=== PATIENT | male | born 1965 | race Caucasian/White ===

== ENCOUNTER 2017-01-11 11:09 | Inpatient (IN) | payer OTHER ==
[2017-01-11 11:39] VITALS: BMI 24.7
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
[2017-01-11] MEDS ORDERED: ACETAMINOPHEN 325 MG TABLET (FP) PO PRN (12:30)
[2017-01-11] MEDS ORDERED: MENTHOL/PHENOL 1 EACH UD MM PRN (12:30)
[2017-01-11] MEDS ORDERED: MAGNESIUM HYDROX 2400MG/30ML ORAL SUSPENSION 30 ML CUP PO PRN (12:30)
[2017-01-11] MEDS ORDERED: guaiFENesin/D-METHORPHAN HB 10 ML UNIT-DOSE CUPS PO PRN (12:30)
[2017-01-11] MEDS ORDERED: P-EPHED 60MG/TRIPROLIDI 2.5MG TABLET PO PRN (12:30)
[2017-01-11] MEDS ORDERED: MAGNESIUM CITRATE 300 ML BOTTLE PO PRN (12:30)
[2017-01-11] MEDS ORDERED: MAG HYDROX/AL HYDROX/SIMETH 30 ML UNIT-DOSE CUP PO PRN (12:30)
[2017-01-11] MEDS ORDERED: chlordiazePOXIDE HCL 25 MG CAPSULE PO ONE (13:45)
--- NOTE | 2017-01-11 13:59 | CONSULT ---
[facility] Psychiatric Consult - Data Date of interview: 01/11/17 Admission source: [facility] Identifying data: This is 51 years old iraqi speaking male with no psychiatric hospitalization history, intoxicated with: Alcohol, Cannabis Substance Abuse History: Drug Screen Negative: No. Urine Drug Screen Results: THC-Marijuana. - Smoking Cessation. Smoking history: Former smoker. Have you smoked in the past 12 months: No. Aproximately how many cigarettes per day: 1. Hx Chewing Tobacco Use: No. Initiated information on smoking cessation: No. - Substance & Tx. History. Hx Alcohol Use: Yes. Hx Substance Use: No. Substance Use Type: Alcohol. Hx Substance Use Treatment: Yes ([facility] detox ) Medical History: GERD Psychiatric History: Patient reports no past psychiatric history Physical/Sexual Abuse/Trauma History: Denies Additional Comment: Drug Screen Negative: No. Urine Drug Screen Results: THC- Marijuana. Observation. Detox Unit Care Protocol Mental Status Exam - Mental Status Exam Alert and Oriented to: Person Cognitive Function: Fair Patient Appearance: Unkempt Mood: Apprehensive Affect: Mood Congruent Patient Behavior: Cooperative Speech Pattern: Appropriate Voice Loudness: Normal Thought Process: Goal Oriented Thought Disorder: Being Controlled Hallucinations: Denies Suicidal Ideation: Denies Homicidal Ideation: Denies Insight/Judgement: Fair Sleep: Difficulty falling asleep Appetite: Fair Muscle strength/Tone: Normal Gait/Station: Normal Additional Comments: Observation. Detox Unit Care Protocol Psychiatric Findings - Problem List ([place] 1, 2,3) (1) Alcohol dependence with uncomplicated withdrawal Current Visit: No Status: Chronic (2) GERD (gastroesophageal reflux disease) Current Visit: No Status: Chronic Qualifiers: Esophagitis presence: without esophagitis Qualified Code(s): K21.9 - Gastro-esophageal reflux disease without esophagitis (3) Alcohol-induced sleep disorder Current Visit: Yes Status: Acute - Initial Treatment Plan Initial Treatment Plan: Observation. Detox Unit Care Protocol
[2017-01-11 17:02] LABS: URINE APPEARANCE CLEAR; URINE BILIRUBIN NEGATIVE (NEGATIVE); URINE BLOOD 1+ (NEGATIVE); URINE COLOR STRAW; URINE GLUCOSE (UA) NEGATIVE (NEGATIVE); URINE KETONE NEGATIVE (NEGATIVE); URINE LEUK ESTERASE NEGATIVE (NEGATIVE); URINE NITRITE NEGATIVE (NEGATIVE); URINE PROTEIN NEGATIVE (NEGATIVE); URINE UROBILINOGEN NEGATIVE mg/dL (0.2-1.0)
[2017-01-11 17:04] LABS: URINE RBC <1 /hpf (0-3)
[2017-01-11] MEDS: chlordiazePOXIDE HCL 25 MG CAPSULE PO SCH ×2 (17:33→22:19)
[2017-01-11] MEDS: hydrOXYzine PAMOATE 50 MG CAPSULE (FP) PO PRN (18:28)
[2017-01-11] MEDS: THIAMINE HCL 100 MG TABLET (FP) PO SCH (22:19)
[2017-01-11] MEDS: RANITIDINE HCL 150 MG TABLET (FP) PO SCH (22:19)
[2017-01-11] MEDS: diphenhydrAMINE HCL 50 MG CAPSULE PO PRN (22:19)
[2017-01-12] MEDS: chlordiazePOXIDE HCL 25 MG CAPSULE PO PRN ×3 (00:50→13:02)
[2017-01-12] MEDS: diphenhydrAMINE HCL 50 MG CAPSULE PO PRN ×2 (00:50→22:17)
[2017-01-12] MEDS: hydrOXYzine PAMOATE 50 MG CAPSULE (FP) PO PRN ×2 (02:30→15:06)
[2017-01-12] MEDS: chlordiazePOXIDE HCL 25 MG CAPSULE PO SCH ×4 (05:25→22:17)
--- NOTE | 2017-01-12 09:00 | PN ---
S CIWA - CIWA Score Nausea/Vomitin-No Nausea/No Vomiting Muscle Tremors: 4-Moderate,w/Arms Extend Anxiety: 3 Agitation: 4-Moderately Restless Paroxysmal Sweats: 3 Orientation: 0-Oriented Tacttile Disturbances: 0-None Auditory Disturbances: 0-None Visual Disturbances: 0-None Headache: 2-Mild CIWA-Ar Total Score: 16 BHS Progress Note (SOAP) Subjective: sweats shakes nausea chills headache interrupted sleep Objective: 01/12/17 08:59 Vital Signs Temperature 97.7 F 01/12/17 06:00 Pulse Rate 93 H 01/12/17 06:30 Respiratory Rate 20 01/12/17 06:00 Blood Pressure 121/87 01/12/17 06:00 O2 Sat by Pulse Oximetry (%) Laboratory Tests 01/11/17 14:00 Urine Color Straw Urine Appearance Clear Urine pH 7.0 Ur Specific [place] <= 1.005 Urine Protein Negative Urine Glucose (UA) Negative Urine Ketones Negative Urine Blood 1+ H Urine Nitrite Negative Urine Bilirubin Negative Urine Urobilinogen Negative Ur Leukocyte Esterase Negative Urine RBC <1 Urine WBC None labs pending awake/alert ambulating no acute distress Assessment: 01/12/17 08:59 withdrawal sx Plan: continue detox increase fluids labs pending encouraged librium prn when necessary
[2017-01-12] MEDS: RANITIDINE HCL 150 MG TABLET (FP) PO SCH ×2 (10:07→22:17)
[2017-01-12] MEDS: PRENATAL VITAMINS W/ FOLIC ACID TABLET (FP) PO SCH (10:08)
[2017-01-12 10:28] LABS: MCH 30.1 pg (25.7-33.7); MCHC 32.6 g/dl (32.0-35.9); MEAN CELL VOLUME 92.1 fl (80-96); MEAN PLT VOLUME 9.4 fl (7.5-11.1); PLATELET COUNT 62 K/MM3 (134-434); RDW 16.2 % (11.9-15.9); WHITE BLOOD COUNT 4.6 K/mm3 (4.0-10.0)
[2017-01-12] MEDS ORDERED: cloNIDine HCL 0.1 MG TABLET PO ONE (11:47)
[2017-01-12 12:25] LABS: ALBUMIN 3.9 g/dl (3.4-5.0); ALK PHOS 162 U/L (45-117); ANION GAP 13 (8-16); CALCIUM 8.5 mg/dL (8.5-10.1); CO2 29 mmol/L (21-32); CREATININE 0.7 mg/dL (0.7-1.3); GLUCOSE,RANDOM 123 mg/dL (74-106); SGOT/AST 287 U/L (15-37); SGPT/ALT 105 U/L (12-78); TOT PROT 7.8 g/dl (6.4-8.2)
[2017-01-12] MEDS ORDERED: TRYPAN BLUE 0.5 ML DISP.SYRIN IO SCH (13:30)
[2017-01-12] MEDS: POTASSIUM CHLORIDE TABS 20 MEQ TABLET.ER (FP) PO SCH (14:10)
--- NOTE | 2017-01-12 14:24 | EKG ---
Test Reason : Blood Pressure : / mmHG Vent. Rate : 095 BPM Atrial Rate : 095 BPM P-R Int : 154 ms QRS Dur : 106 ms QT Int : 346 ms P-R-T Axes : 032 024 059 degrees QTc Int : 434 ms NORMAL SINUS RHYTHM NORMAL ECG WHEN COMPARED WITH ECG OF 29-JUN-2016 14:17, NO SIGNIFICANT CHANGE WAS FOUND Confirmed by RAKAN CARLSON MD ([id number]) on 01/12/2017 2:24:18 PM Referred By: Confirmed By:RAKAN CARLSON MD
[2017-01-12] MEDS: LOPERAMIDE HCL 2 MG CAPSULE PO PRN (22:17)
[2017-01-12] MEDS: THIAMINE HCL 100 MG TABLET (FP) PO SCH (22:17)
[2017-01-13] MEDS: diphenhydrAMINE HCL 50 MG CAPSULE PO PRN ×2 (00:31→22:42)
[2017-01-13] MEDS: chlordiazePOXIDE HCL 25 MG CAPSULE PO PRN ×3 (01:09→19:36)
[2017-01-13] MEDS: chlordiazePOXIDE HCL 25 MG CAPSULE PO SCH ×2 (05:08→10:17)
[2017-01-13] MEDS: LOPERAMIDE HCL 2 MG CAPSULE PO PRN (06:12)
--- NOTE | 2017-01-13 08:39 | PN ---
BHS Progress Note Note: pt was advised not to leave AMA. Pt states I need to get home. Pt was
[2017-01-13] MEDS: hydrOXYzine PAMOATE 50 MG CAPSULE (FP) PO PRN ×3 (08:53→18:22)
--- NOTE | 2017-01-13 09:06 | PN ---
[facility] CIWA - CIWA Score Nausea/Vomitin-No Nausea/No Vomiting Muscle Tremors: 4-Moderate,w/Arms Extend Anxiety: 3 Agitation: 4-Moderately Restless Paroxysmal Sweats: 3 Orientation: 0-Oriented Tacttile Disturbances: 0-None Auditory Disturbances: 0-None Visual Disturbances: 0-None Headache: 0-None Present CIWA-Ar Total Score: 14 BHS Progress Note (SOAP) Subjective: anxious agitation interrupted sleep irritable i would like my sutures removed Objective: 01/13/17 09:06 Vital Signs Temperature 97.7 F 01/13/17 06:28 Pulse Rate 109 H 01/13/17 06:28 Respiratory Rate 18 01/13/17 06:28 Blood Pressure 130/94 01/13/17 06:28 O2 Sat by Pulse Oximetry (%) Laboratory Tests 01/11/17 01/12/17 01/12/17 14:00 06:00 06:00 WBC 4.6 RBC 4.45 Hgb 13.4 Hct 40.9 MCV 92.1 MCH 30.1 MCHC 32.6 RDW 16.2 H Plt Count 62 L D MPV 9.4 Sodium 138 Potassium 3.4 L Chloride 96 L Carbon Dioxide 29 Anion Gap 13 BUN 4 L D Creatinine 0.7 Creat Clearance w eGFR > 60 Random Glucose 123 H D Calcium 8.5 Total Bilirubin 1.0 AST 287 H D ALT 105 H Alkaline Phosphatase 162 H D Total Protein 7.8 Albumin 3.9 Urine Color Straw Urine Appearance Clear Urine pH 7.0 Ur Specific [place] <= 1.005 Urine Protein Negative Urine Glucose (UA) Negative Urine Ketones Negative Urine Blood 1+ H Urine Nitrite Negative Urine Bilirubin Negative Urine Urobilinogen Negative Ur Leukocyte Esterase Negative Urine RBC <1 Urine WBC None RPR Titer 01/12/17 06:00 WBC RBC Hgb Hct MCV MCH MCHC RDW Plt Count MPV Sodium Potassium Chloride Carbon Dioxide Anion Gap BUN Creatinine Creat Clearance w eGFR Random Glucose Calcium Total Bilirubin AST ALT Alkaline Phosphatase Total Protein Albumin Urine Color Urine Appearance Urine pH Ur Specific [place] Urine Protein Urine Glucose (UA) Urine Ketones Urine Blood Urine Nitrite Urine Bilirubin Urine Urobilinogen Ur Leukocyte Esterase Urine RBC Urine WBC RPR Titer Nonreactive awake/alert ambulating no acute distress Assessment: 01/13/17 10:03 withdrawal sx suture site; clean, dry and healed. no s/s of infection Plan: continue detox increase fluids vistirl prn sutures removed; bacitracin ordered.
[2017-01-13 10:14] LABS: ALBUMIN 3.6 g/dl (3.4-5.0); ALK PHOS 207 U/L (45-117); ANION GAP 8 (8-16); BILIRUBIN,TOTAL 1.4 mg/dL (0.2-1.0); CO2 33 mmol/L (21-32); CREATININE 0.7 mg/dL (0.7-1.3); GLUCOSE,RANDOM 97 mg/dL (74-106); SGPT/ALT 225 U/L (12-78); TOT PROT 7.6 g/dl (6.4-8.2)
[2017-01-13] MEDS: POTASSIUM CHLORIDE TABS 20 MEQ TABLET.ER (FP) PO SCH (10:17)
[2017-01-13] MEDS: RANITIDINE HCL 150 MG TABLET (FP) PO SCH ×2 (10:17→22:42)
[2017-01-13] MEDS: BACITRACIN 0.9 GM PACKET TP SCH (10:17)
[2017-01-13] MEDS: PRENATAL VITAMINS W/ FOLIC ACID TABLET (FP) PO SCH (10:17)
[2017-01-13 10:47] LABS: SGOT/AST 676 U/L (15-37)
[2017-01-13] MEDS ORDERED: hydrOXYzine PAMOATE 50 MG CAPSULE (FP) PO ONE (11:26)
--- NOTE | 2017-01-13 11:39 | PN ---
Psychiatric Progress Note Vital Signs: Vital Signs Period Temp Pulse Resp BP Sys/Cosby Pulse Ox Last 24 Hr 97.7 F-98.2 F 97-110 18-20 110-139/80-96 Date of Session: 01/13/17 Chief Complaint:: Insomnia HPI: Patient reports insomnia, reports good response on Seroquel 100mg po qhs Current Medications: Active Medications Generic Name Dose Route Start Last Admin Trade Name Freq PRN Reason Stop Dose Admin Al Hydroxide/Mg Hydroxide 30 ml 01/11/17 12:30 Mylanta Oral Suspension - PO Q6H PRN DYSPEPSIA Artificial Tears 1 drop 01/12/17 13:30 Artificial Tears OU Q6H PRN DRY EYES Bacitracin 0.9 gm 01/13/17 10:00 01/13/17 10:17 Bacitracin - TP 0.9 gm DAILY NILS Administration Chlordiazepoxide HCl 10 mg 01/14/17 17:00 Librium - PO 01/15/17 11:01 [id number]-KRN NILS Chlordiazepoxide HCl 25 mg 01/11/17 12:30 01/13/17 01:09 Librium - PO 01/14/17 12:29 25 mg Q4H PRN Administration WITHDRAWAL(CONT SUBST) Chlordiazepoxide HCl 15 mg 01/13/17 17:00 Librium - PO 01/14/17 11:01 [id number] NILS Diphenhydramine HCl 50 mg 01/11/17 12:30 01/13/17 00:31 Benadryl - PO 50 mg HSMR1 PRN Administration INSOMNIA Eucalyptus/Menthol/Phenol/Sorbitol 1 each 01/11/17 12:30 Cepastat Lozenge - MM Q4H PRN SORE THROAT Guaifenesin 10 ml 01/11/17 12:30 Robitussin Dm - PO Q6H PRN COUGH Hydroxyzine Pamoate 50 mg 01/11/17 12:30 01/13/17 08:53 Vistaril - PO 50 mg Q4H PRN Administration AGITATION Ibuprofen 400 mg 01/11/17 12:30 Motrin - PO Q6H PRN SEVERE PAIN Loperamide HCl 4 mg 01/11/17 12:30 01/13/17 06:12 Imodium - PO 4 mg Q6H PRN Administration DIARRHEA Magnesium Citrate 300 ml 01/11/17 12:30 Citroma - PO Q48H PRN CONSTIPATION Magnesium Hydroxide 30 ml 01/11/17 12:30 Milk Of Magnesia - PO DAILY PRN CONSTIPATION Potassium Chloride 40 meq 01/12/17 13:45 01/13/17 10:17 K-Dur - PO 40 meq DAILY NILS Administration Multivit/Folic Acid/Iron 1 tab 01/12/17 10:00 01/13/17 10:17 Vitamins (Sjr) - PO 1 tab DAILY NILS Administration Pseudoephedrine/Triprolidine 1 combo 01/11/17 12:30 Actifed - PO TID PRN NASAL CONGESTION Quetiapine Fumarate 100 mg 01/13/17 22:00 Seroquel - PO HS NILS Ranitidine HCl 150 mg 01/11/17 22:00 01/13/17 10:17 Zantac - PO 150 mg BID NILS Administration Thiamine HCl 100 mg 01/11/17 22:00 01/12/17 22:17 Vitamin B1 - PO 100 mg HS NILS Administration Mental Status Exam - Mental Status Exam Alert and Oriented to: Person Cognitive Function: Fair Patient Appearance: Well Groomed Mood: Anxious Affect: Mood Congruent Patient Behavior: Talkative, Agitated Speech Pattern: Excessive Voice Loudness: Mildly Loud Thought Process: Goal Oriented Thought Disorder: Being Controlled Hallucinations: Denies Suicidal Ideation: Denies Homicidal Ideation: Denies Insight/Judgement: Fair Sleep: Difficulty falling asleep Appetite: Fair Muscle strength/Tone: Normal Gait/Station: Normal Additional Comments: Seroquel 100mg po qhs Psychiatric Treatment Plan - Problem List (1) Alcohol dependence with uncomplicated withdrawal Current Visit: Yes (2) GERD (gastroesophageal reflux disease) Current Visit: Yes Qualifiers: Esophagitis presence: without esophagitis Qualified Code(s): K21.9 - Gastro-esophageal reflux disease without esophagitis (3) Alcohol-induced sleep disorder Current Visit: Yes Initial treatment plan: Seroquel 100mg po qhs
[2017-01-13] MEDS: chlordiazePOXIDE 5 MG CAPSULE PO SCH ×2 (16:21→22:42)
[2017-01-13] MEDS: IBUPROFEN 400 MG TABLET (FP) PO PRN (16:21)
[2017-01-13] MEDS: QUEtiapine FUMARATE 100 MG TABLET (FP) PO SCH (22:42)
[2017-01-13] MEDS: THIAMINE HCL 100 MG TABLET (FP) PO SCH (22:42)
[2017-01-14] MEDS: chlordiazePOXIDE 5 MG CAPSULE PO SCH ×2 (05:05→11:04)
[2017-01-14] MEDS: chlordiazePOXIDE HCL 25 MG CAPSULE PO PRN (08:39)
--- NOTE | 2017-01-14 08:41 | PN ---
BHS Progress Note (SOAP) Subjective: anxiety sweats irritable interrupted sleep Objective: 01/14/17 08:36 Vital Signs Temperature 98.1 F 01/14/17 06:14 Pulse Rate 89 01/14/17 06:14 Respiratory Rate 18 01/14/17 06:14 Blood Pressure 127/82 01/14/17 06:14 O2 Sat by Pulse Oximetry (%) Laboratory Tests 01/11/17 01/12/17 01/12/17 14:00 06:00 06:00 WBC 4.6 RBC 4.45 Hgb 13.4 Hct 40.9 MCV 92.1 MCH 30.1 MCHC 32.6 RDW 16.2 H Plt Count 62 L D MPV 9.4 Sodium 138 Potassium 3.4 L Chloride 96 L Carbon Dioxide 29 Anion Gap 13 BUN 4 L D Creatinine 0.7 Creat Clearance w eGFR > 60 Random Glucose 123 H D Calcium 8.5 Total Bilirubin 1.0 AST 287 H D ALT 105 H Alkaline Phosphatase 162 H D Total Protein 7.8 Albumin 3.9 Urine Color Straw Urine Appearance Clear Urine pH 7.0 Ur Specific [place] <= 1.005 Urine Protein Negative Urine Glucose (UA) Negative Urine Ketones Negative Urine Blood 1+ H Urine Nitrite Negative Urine Bilirubin Negative Urine Urobilinogen Negative Ur Leukocyte Esterase Negative Urine RBC <1 Urine WBC None RPR Titer 01/12/17 01/13/17 06:00 06:30 WBC RBC Hgb Hct MCV MCH MCHC RDW Plt Count MPV Sodium 138 Potassium 3.7 Chloride 97 L Carbon Dioxide 33 H Anion Gap 8 BUN 6 L D Creatinine 0.7 Creat Clearance w eGFR > 60 Random Glucose 97 D Calcium 9.0 Total Bilirubin 1.4 H D AST 676 H D ALT 225 H D Alkaline Phosphatase 207 H D Total Protein 7.6 Albumin 3.6 Urine Color Urine Appearance Urine pH Ur Specific [place] Urine Protein Urine Glucose (UA) Urine Ketones Urine Blood Urine Nitrite Urine Bilirubin Urine Urobilinogen Ur Leukocyte Esterase Urine RBC Urine WBC RPR Titer Nonreactive elevated ast/alt pt appears with little confusion as to how he arrived to the unit. however, pt is aware of time, person. ammonia level ordered repeated ast/alt/inr labs Assessment: 01/14/17 10:36 withdrawal sx Plan: continue detox increase fluids f/u pending labs d/c for tomorrow is pending on labs and mental orientation
[2017-01-14] MEDS: POTASSIUM CHLORIDE TABS 20 MEQ TABLET.ER (FP) PO SCH (11:04)
[2017-01-14] MEDS: BACITRACIN 0.9 GM PACKET TP SCH (11:04)
[2017-01-14] MEDS: PRENATAL VITAMINS W/ FOLIC ACID TABLET (FP) PO SCH (11:04)
[2017-01-14] MEDS: RANITIDINE HCL 150 MG TABLET (FP) PO SCH ×2 (11:04→22:31)
[2017-01-14] MEDS: hydrOXYzine PAMOATE 50 MG CAPSULE (FP) PO PRN ×2 (11:05→17:22)
[2017-01-14] MEDS ORDERED: LACTULOSE 20 GM/30 ML UDC (FOR ORAL USE ONLY) PO ONE (12:01)
[2017-01-14] MEDS ORDERED: hydrOXYzine PAMOATE 50 MG CAPSULE (FP) PO ONE (13:47)
[2017-01-14] MEDS: IBUPROFEN 400 MG TABLET (FP) PO PRN (13:54)
[2017-01-14] MEDS: LACTULOSE 20 GM/30 ML UDC (FOR ORAL USE ONLY) PO SCH ×3 (14:05→22:32)
[2017-01-14 15:48] LABS: SGOT/AST 364 U/L (15-37); SGPT/ALT 215 U/L (12-78)
[2017-01-14 16:12] LABS: INR 0.98 (0.82-1.09); PROTHROMBIN TIME (PATIENT) 10.8 SEC (9.98-11.88)
[2017-01-14] MEDS: chlordiazePOXIDE HCL 10 MG CAPSULE PO SCH ×2 (17:19→22:31)
[2017-01-14] MEDS: diphenhydrAMINE HCL 50 MG CAPSULE PO PRN (22:31)
[2017-01-14] MEDS: THIAMINE HCL 100 MG TABLET (FP) PO SCH (22:31)
[2017-01-14] MEDS: QUEtiapine FUMARATE 100 MG TABLET (FP) PO SCH (22:31)
[2017-01-14] MEDS: ARTIFICIAL TEARS (POLYVINYL ALCOHOL 1.4%) OPTH DROPS OU PRN (22:32)
[2017-01-15] MEDS: chlordiazePOXIDE HCL 10 MG CAPSULE PO SCH ×2 (05:39→10:18)
[2017-01-15] MEDS: ARTIFICIAL TEARS (POLYVINYL ALCOHOL 1.4%) OPTH DROPS OU PRN (09:14)
[2017-01-15] MEDS: hydrOXYzine PAMOATE 50 MG CAPSULE (FP) PO PRN (09:18)
[2017-01-15] MEDS: RANITIDINE HCL 150 MG TABLET (FP) PO SCH (10:18)
[2017-01-15] MEDS: BACITRACIN 0.9 GM PACKET TP SCH (10:18)
[2017-01-15] MEDS: PRENATAL VITAMINS W/ FOLIC ACID TABLET (FP) PO SCH (10:18)
[2017-01-15] MEDS: POTASSIUM CHLORIDE TABS 20 MEQ TABLET.ER (FP) PO SCH (10:18)
[2017-01-15] MEDS: LACTULOSE 20 GM/30 ML UDC (FOR ORAL USE ONLY) PO SCH (10:19)
--- NOTE | 2017-01-15 10:54 | DS ---
[facility] Detox Discharge Summary Admission Date: 01/11/17 Discharge Date: 01/15/17 - History Present History: Alcohol Dependence - Physical Exam Results Vital Signs: Vital Signs Temperature 97.7 F 01/15/17 06:31 Pulse Rate 83 01/15/17 06:31 Respiratory Rate 16 01/15/17 06:31 Blood Pressure 108/75 01/15/17 06:31 O2 Sat by Pulse Oximetry (%) - Treatment Hospital Course: Detox Protocol Followed, Detoxed Safely, Responded well, Discharged Condition Good, Rehab Referral Accepted - Medication Discharge Medications: Ambulatory Orders Potassium Chloride [K-Dur -] 40 meq PO DAILY #3 tab 01/13/17 Quetiapine Fumarate [Seroquel] 100 mg PO HS #30 tablet 01/13/17 Quetiapine Fumarate [Seroquel] 100 mg PO HS #30 tablet 01/13/17 - Diagnosis (1) Alcohol dependence with uncomplicated withdrawal Current Visit: Yes Status: Chronic (2) GERD (gastroesophageal reflux disease) Current Visit: Yes Status: Chronic Qualifiers: Esophagitis presence: without esophagitis Qualified Code(s): K21.9 - Gastro-esophageal reflux disease without esophagitis - AMA Did Patient Leave Against Medical Advice: No (d/c to home)
[2017-01-15 11:07] VITALS: BP 129/94; PULSE 102; TEMP 97.9
--- NOTE | 2017-01-15 11:56 | PN ---
[facility] Progress Note Note: pt appears much more lucid and states he feels so much better. Pt was advised that his liver enzymes are improving slowly and ammonia level will improve with continued lactulose. Pt in agreement.
== END 2017-01-15 11:40 | disposition home or self-care (01) | DRG 897 ==
LOC: YASAS 11:09 → Y6N 13:40
PROVIDERS: ADMIT Internal Medicine; ATTEND Internal Medicine
PROC: HZ2ZZZZ Detoxification Services for Substance Abuse Treatment (ICD-10-PCS; principal; 2017-01-11)
DX: F19.230 Other psychoactive substance dependence with withdrawal, uncomplicated (principal); F10.230 Alcohol dependence with withdrawal, uncomplicated; F10.282 Alcohol dependence with alcohol-induced sleep disorder; R00.0 Tachycardia, unspecified; R74.0 Nonspecific elevation of levels of transaminase and lactic acid dehydrogenase [LDH]; K21.9 Gastro-esophageal reflux disease without esophagitis; Z87.891 Personal history of nicotine dependence
CPT/HCPCS: 36415; 80053; 81003; 81015; 82140; 84450; 84460; 85027; 85610; 86593; 93005; 93010

== ENCOUNTER 2018-03-03 14:44 | Inpatient (IN) | payer OTHER ==
[2018-03-03 15:33] VITALS: BMI 26.6
--- NOTE | 2018-03-03 18:41 | HP ---
CIWA Score - CIWA Score Nausea/Vomitin-No Nausea/No Vomiting Muscle Tremors: 2 Anxiety: 3 Agitation: 5 Paroxysmal Sweats: 3 Orientation: 1-Uncertain about Date (no distress) Tacttile Disturbances: 0-None Auditory Disturbances: 0-None Visual Disturbances: 1-Very Mild Sensitivity Headache: 0-None Present CIWA-Ar Total Score: 15 Admission ROS BHS - HPI Chief Complaint: " I have the shakes, I need help" alcohol withdrawal symptoms Allergies/Adverse Reactions: Allergies Allergy/AdvReac Type Severity Reaction Status Date / Time No Known Allergies Allergy Verified 03/03/18 18:27 History of Present Illness: 52 yo male with hx of chronic alcohol and marijuana dependence. Last detox [facility] 01/10/18 -01/12/18 left AMA, elapsed soon after. PMHX: GERD, depression, insomnia , and anxiety. Denies suicidal / homicidal ideation. Longest period of sobriety one year. Denies hx of blackouts or seizures. Exam Limitations: No Limitations - Ebola screening Have you traveled outside of the country in the last 21 days: No Have you had contact with anyone from an Ebola affected area: No Have you been sick,other than usual withdrawal symptoms: No - Review of Systems Constitutional: Loss of Appetite, Changes in sleep, Other (anxious) EENT: reports: Dental Problems (missing teeth) Respiratory: reports: No Symptoms reported Cardiac: reports: No Symptoms Reported GI: reports: Diarrhea, Poor Appetite, Poor Fluid Intake, Indigestion : reports: No Symptoms Reported Musculoskeletal: reports: No Symptoms Reported Integumentary: reports: No Symptoms Reported Neuro: reports: No Symptoms reported Endocrine: reports: Increased Thirst Hematology: reports: No Symptoms Reported Psychiatric: reports: Orientated x3, Anxious, Depressed Other Systems: Reviewed and Negative Patient History - Patient Medical History Hx Anemia: No Hx Asthma: No Hx Chronic Obstructive Pulmonary Disease (COPD): No Hx Cancer: No Hx Cardiac Disorders: No Hx Congestive Heart Failure: No Hx Hypertension: No Hx Hypercholesterolemia: No Hx Pacemaker: No HX Cerebrovascular Accident: No Hx Seizures: No Hx Dementia: No Hx Diabetes: No Hx Gastrointestinal Disorders: No Hx Liver Disease: No Hx Genitourinary Disorders: No Hx Sexually Transmitted Disorders: No Hx Renal Disease (ESRD): No Hx Thyroid Disease: No Hx Human Immunodeficiency Virus (HIV): No (negative) Hx Hepatitis C: No Hx Depression: Yes Hx Suicide Attempt: No Hx Bipolar Disorder: No Hx Schizophrenia: No - Patient Surgical History Past Surgical History: Yes Hx Neurologic Surgery: No Hx Cataract Extraction: No Hx Cardiac Surgery: No Hx Lung Surgery: No Hx Breast Surgery: No Hx Breast Biopsy: No Hx Abdominal Surgery: No Hx Appendectomy: No Hx Cholecystectomy: No Hx Genitourinary Surgery: No Hx Section: No Hx Orthopedic Surgery: Yes (left elbow 12/2015) Other Surgical History: fracture of rt shoulder Anesthesia Reaction: No - PPD History Previous Implant?: Yes Documented Results: Negative w/proof Date: 01/12/18 Results: 0 mm PPD to be Administered?: No - Smoking Cessation Smoking history: Former smoker Have you smoked in the past 12 months: No Aproximately how many cigarettes per day: 1 If you are a former smoker, when did you quit?: 2012 Hx Chewing Tobacco Use: No Initiated information on smoking cessation: No 'Breaking Loose' booklet given: 03/03/18 - Substance & Tx. History Hx Alcohol Use: Yes Hx Substance Use: Yes Substance Use Type: Alcohol Hx Substance Use Treatment: Yes (Last detox [facility] 01/10/18 -01/12/18 left AMA) - Substances Abused Alcohol Route: Oral Frequency: Daily Amount used: beer- 3 six pack Age of first use: 15 Date of Last Use: 03/03/18 Marijuana/Hashish Route: Smoking Frequency: Daily Amount used: 3 blunts Age of first use: 15 Date of Last Use: 03/02/18 Family Disease History - Family Disease History Family Disease History: Diabetes: Mother, [place]: Father (prostate ) Admission Physical Exam [facility] - Vital Signs Vital Signs: Vital Signs - 24 hr 03/03/18 15:30 Temperature 97 F L Pulse Rate 91 H Respiratory 18 Rate Blood Pressure 132/87 - Physical General Appearance: Yes: Disheveled, Moderate Distress, Thin, Sweating, Anxious , Other (restless) HEENTM: Yes: Hearing grossly Normal, Normal ENT Inspection, Normocephalic, Normal Voice, MYESHA, Pharynx Normal, Tm's normal, Other (cheilithis) Respiratory: Yes: Chest Non-Tender, Lungs Clear, Normal Breath Sounds, No Respiratory Distress, No Accessory Muscle Use Neck: Yes: Within Normal Limits Breast: Yes: Breast Exam Deferred Cardiology: Yes: Regular Rhythm, Regular Rate Abdominal: Yes: Normal Bowel Sounds, Non Tender, Flat, Soft Genitourinary: Yes: Within Normal Limits Back: Yes: Normal Inspection Musculoskeletal: Yes: full range of Motion, Gait Steady, Pelvis Stable Extremities: Yes: Normal Capillary Refill, Normal Range of Motion 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, Fully Oriented, Alert, Motor Strength 5/5, Depressed Affect Integumentary: Yes: Normal Color, Warm, Diaphoresis Lymphatic: Yes: Within Normal Limits - Diagnostic (1) Alcohol dependence with uncomplicated withdrawal Current Visit: Yes Status: Acute (2) Cannabis dependence Current Visit: Yes Status: Acute (3) GERD (gastroesophageal reflux disease) Current Visit: Yes Status: Chronic Qualifiers: Esophagitis presence: without esophagitis Qualified Code(s): K21.9 - Gastro -esophageal reflux disease without esophagitis (4) Depression Current Visit: Yes Status: Suspected Qualifiers: Depression Type: unspecified Qualified Code(s): F32.9 - Major depressive disorder, single episode, unspecified Cleared for Admission [facility] - Detox or Rehab [facility] Level of Care: Medically Managed Detox Regimen/Protocol: Librium [facility] Breath Alcohol Content Breath Alcohol Content: 0.330 Urine Drug Screen - Results Drug Screen Negative: No Urine Drug Screen Results: THC-Marijuana
[2018-03-03] MEDS ORDERED: LOPERAMIDE HCL 2 MG CAPSULE PO PRN (18:44)
[2018-03-03] MEDS ORDERED: hydrOXYzine PAMOATE 50 MG CAPSULE (FP) PO PRN (18:44)
[2018-03-03] MEDS ORDERED: MAGNESIUM CITRATE 300 ML BOTTLE PO PRN (18:44)
[2018-03-03] MEDS ORDERED: guaiFENesin/D-METHORPHAN HB 10 ML UNIT-DOSE CUPS PO PRN (18:44)
[2018-03-03] MEDS ORDERED: IBUPROFEN 400 MG TABLET (FP) PO PRN (18:44)
[2018-03-03] MEDS ORDERED: ACETAMINOPHEN 325 MG TABLET (FP) PO PRN (18:44)
[2018-03-03] MEDS ORDERED: MAGNESIUM HYDROX 2400MG/30ML ORAL SUSPENSION 30 ML CUP PO PRN (18:44)
[2018-03-03] MEDS ORDERED: P-EPHED 60MG/TRIPROLIDI 2.5MG TABLET PO PRN (18:44)
[2018-03-03] MEDS ORDERED: MENTHOL/PHENOL 1 EACH UD MM PRN (18:44)
[2018-03-03] MEDS ORDERED: MAG HYDROX/AL HYDROX/SIMETH 30 ML UNIT-DOSE CUP PO PRN (18:44)
[2018-03-03] MEDS ORDERED: chlordiazePOXIDE HCL 25 MG CAPSULE PO ONE (19:15)
[2018-03-03] MEDS ORDERED: THIAMINE HCL 100 MG TABLET (FP) PO SCH (22:00)
[2018-03-03] MEDS ORDERED: MELATONIN 5 MG TABLETS PO PRN (22:00)
[2018-03-03] MEDS: chlordiazePOXIDE HCL 25 MG CAPSULE PO SCH (23:00)
[2018-03-04 03:37] LABS: URINE APPEARANCE CLEAR; URINE BILIRUBIN NEGATIVE (<2.0 mg/dL); URINE COLOR COLORLESS; URINE GLUCOSE (UA) NEGATIVE (NEGATIVE); URINE KETONE NEGATIVE (NEGATIVE); URINE LEUK ESTERASE NEGATIVE (NEGATIVE); URINE NITRITE NEGATIVE (NEGATIVE); URINE PROTEIN NEGATIVE (NEGATIVE); URINE UROBILINOGEN NEGATIVE mg/dL (0.2-1.0)
[2018-03-04] MEDS: chlordiazePOXIDE HCL 25 MG CAPSULE PO SCH ×2 (05:27→10:04)
[2018-03-04] MEDS: chlordiazePOXIDE HCL 25 MG CAPSULE PO PRN ×2 (07:43→13:05)
--- NOTE | 2018-03-04 08:01 | EKG ---
Test Reason : Blood Pressure : / mmHG Vent. Rate : 085 BPM Atrial Rate : 085 BPM P-R Int : 158 ms QRS Dur : 094 ms QT Int : 340 ms P-R-T Axes : 049 035 056 degrees QTc Int : 404 ms NORMAL SINUS RHYTHM NORMAL ECG WHEN COMPARED WITH ECG OF 11-JAN-2018 10:00, NO SIGNIFICANT CHANGE WAS FOUND Confirmed by JOSÉ MANUEL FAJARDO MD ([id number]) on 03/04/2018 8:00:52 AM Referred By: Confirmed By:JOSÉ MANUEL FAJARDO MD
[2018-03-04] MEDS ORDERED: PRENATAL VITAMINS W/ FOLIC ACID TABLET (FP) PO SCH (10:00)
[2018-03-04 10:18] VITALS: BP 113/79; PULSE 93; TEMP 98.2
[2018-03-04 10:23] LABS: HEMATOCRIT 39.3 % (35.4-49); HEMOGLOBIN 12.9 GM/dL (11.7-16.9); MCH 29.3 pg (25.7-33.7); MCHC 32.9 g/dl (32.0-35.9); MEAN CELL VOLUME 89.3 fl (80-96); MEAN PLT VOLUME 8.7 fl (7.5-11.1); PLATELET COUNT 181 K/MM3 (134-434); RDW 14.7 % (11.9-15.9); WHITE BLOOD COUNT 4.8 K/mm3 (4.0-10.0)
[2018-03-04 10:25] LABS: ALBUMIN 3.4 g/dl (3.4-5.0); ALK PHOS 71 U/L (45-117); ANION GAP 10 MMOL/L (8-16); BILIRUBIN,TOTAL 0.4 mg/dL (0.2-1); BLOOD UREA NITROGEN 9 mg/dL (7-18); CALCIUM 8.5 mg/dL (8.5-10.1); CHLORIDE 100 mmol/L (98-107); CO2 29 mmol/L (21-32); CREATININE 0.6 mg/dL (0.55-1.3); GLUCOSE,RANDOM 83 mg/dL (74-106); POTASSIUM 3.8 mmol/L (3.5-5.1); SGOT/AST 25 U/L (15-37); SGPT/ALT 20 U/L (13-61); SODIUM 139 mmol/L (136-145)
--- NOTE | 2018-03-04 13:49 | PN ---
[facility] CIWA - CIWA Score Nausea/Vomitin-No Nausea/No Vomiting Muscle Tremors: 4-Moderate,w/Arms Extend Anxiety: 4-Mod. Anxious/Guarded Agitation: 4-Moderately Restless Paroxysmal Sweats: 1-Minimal Palms Moist Orientation: 0-Oriented Tacttile Disturbances: 0-None Auditory Disturbances: 0-None Visual Disturbances: 0-None Headache: 0-None Present CIWA-Ar Total Score: 13
--- NOTE | 2018-03-04 13:53 | PN ---
S Progress Note Note: PT SIGNED OUT AMA FOR PERSONAL REASONS. ALERT O X 3. NAD.
--- NOTE | 2018-03-04 13:55 | DS ---
[facility] Detox Discharge Summary Admission Date: 03/03/18 Discharge Date: 03/04/18 - History Present History: Alcohol Dependence Additional Comments: PT DECLINED TO CONTINUE WITH DETOX FOR PERSONAL REASONS. ALERT O X 3. NAD. Pertinent Past History: PLEASE SEE DX BELOW - Physical Exam Results Vital Signs: Vital Signs Temperature 98.2 F 03/04/18 10:17 Pulse Rate 93 H 03/04/18 10:17 Respiratory Rate 18 03/04/18 10:17 Blood Pressure 113/79 03/04/18 10:17 O2 Sat by Pulse Oximetry (%) Pertinent Admission Physical Exam Findings: WITHDRAWAL SX Laboratory Tests 03/03/18 03/04/18 03/04/18 23:27 07:00 07:00 WBC 4.8 RBC 4.40 Hgb 12.9 Hct 39.3 MCV 89.3 MCH 29.3 MCHC 32.9 RDW 14.7 Plt Count 181 MPV 8.7 D Sodium 139 Potassium 3.8 Chloride 100 Carbon Dioxide 29 Anion Gap 10 BUN 9 Creatinine 0.6 Creat Clearance w eGFR > 60 Random Glucose 83 Calcium 8.5 Total Bilirubin 0.4 AST 25 ALT 20 Alkaline Phosphatase 71 Total Protein 7.0 Albumin 3.4 Urine Color Colorless Urine Appearance Clear Urine pH 7.0 D Ur Specific [place] 1.002 Urine Protein Negative Urine Glucose (UA) Negative Urine Ketones Negative Urine Blood Negative Urine Nitrite Negative Urine Bilirubin Negative Urine Urobilinogen Negative Ur Leukocyte Esterase Negative - Treatment Hospital Course: Discharged Condition Good - Medication Discharge Medications: Ambulatory Orders NK [No Known Home Medication] 01/11/18 - Diagnosis (1) Alcohol dependence with uncomplicated withdrawal Current Visit: Yes Status: Acute (2) Cannabis dependence Current Visit: Yes Status: Acute (3) Insomnia Current Visit: Yes Status: Acute Qualifiers: Insomnia type: unspecified Qualified Code(s): G47.00 - Insomnia, unspecified - AMA Did Patient Leave Against Medical Advice: Yes (AMA)
--- NOTE | 2018-03-04 15:54 | PN ---
[facility] Progress Note Note: Psychiatric nurse practitioner note: Professor Of Voice informed by staff that patient left AMA. Unable to complete psychiatric consultation.
[2018-03-04] MEDS ORDERED: chlordiazePOXIDE HCL 25 MG CAPSULE PO SCH (23:00)
[2018-03-05] MEDS ORDERED: chlordiazePOXIDE 5 MG CAPSULE PO SCH (23:00)
[2018-03-06] MEDS ORDERED: chlordiazePOXIDE HCL 10 MG CAPSULE PO SCH (23:00)
== END 2018-03-04 14:02 | disposition left against medical advice (07) | DRG 894 ==
LOC: YASAS 14:44 → Y3N 18:33
PROC: HZ2ZZZZ Detoxification Services for Substance Abuse Treatment (ICD-10-PCS; principal; 2018-03-03)
DX: F10.230 Alcohol dependence with withdrawal, uncomplicated (principal); F12.20 Cannabis dependence, uncomplicated; F32.9 Major depressive disorder, single episode, unspecified; G47.00 Insomnia, unspecified; K21.9 Gastro-esophageal reflux disease without esophagitis
CPT/HCPCS: 36415; 80053; 81003; 85027; 86593; 93005; 93010

== ENCOUNTER 2018-05-01 12:21 | Inpatient (IN) | payer OTHER ==
[2018-05-01 12:54] VITALS: BMI 28.3
--- NOTE | 2018-05-01 15:25 | HP ---
CIWA Score Nausea/Vomitin Muscle Tremors: 4-Moderate,w/Arms Extend Anxiety: 4-Mod. Anxious/Guarded Agitation: 4-Moderately Restless Paroxysmal Sweats: 3 Orientation: 0-Oriented Tacttile Disturbances: 0-None Auditory Disturbances: 0-None Visual Disturbances: 0-None Headache: 1-Very Mild CIWA-Ar Total Score: 19 - Admission Criteria OASAS Guidelines: Admission for Medically Managed Detox: Requires at least one of the followin. CIWA greater than 12 2. Seizures within the past 24 hours 3. Delirium tremens within the past 24 hours 4. Hallucinations within the past 24 hours 5. Acute intervention needed for co occurring medical disorder 6. Acute intervention needed for co occurring psychiatric disorder 7. Severe withdrawal that cannot be handled at a lower level of care (continued vomiting, continued diarrhea, abnormal vital signs) requiring intravenous medication and/or fluids 8. Patient presents the following: CIWA greater than 12 Admission Criteria Met: Admission criteria met Admission ROS S - HPI Chief Complaint: "I want to clean my living, I need help to stop" Allergies/Adverse Reactions: Allergies Allergy/AdvReac Type Severity Reaction Status Date / Time No Known Allergies Allergy Verified 05/01/18 13:32 History of Present Illness: 52 y/o with a long hx of alcohol addiction presents requesting detox. LAst drink was today, no remarkable sober period. Pt was last here in Feb but signed out AMA after a day. Pt denies alcohol induced seizures. Denies SI/HI Hx of Gastritis. Denies Psych hx, wants to see the psychiatrist for insomnia Exam Limitations: No Limitations - Ebola screening Have you traveled outside of the country in the last 21 days: No Have you had contact with anyone from an Ebola affected area: No Have you been sick,other than usual withdrawal symptoms: No Do you have a fever: No - Review of Systems Constitutional: Loss of Appetite, Night Sweats EENT: reports: Blurred Vision, Dental Problems (upper dentures) Respiratory: reports: No Symptoms reported Cardiac: reports: No Symptoms Reported GI: reports: Diarrhea, Nausea, Vomiting : reports: No Symptoms Reported Musculoskeletal: reports: No Symptoms Reported Integumentary: reports: Flushing Neuro: reports: No Symptoms reported Endocrine: reports: No Symptoms Reported Hematology: reports: No Symptoms Reported Psychiatric: reports: No Sypmtoms Reported, Agitated, Anxious Other Systems: Reviewed and Negative Patient History - Patient Medical History Hx Anemia: No Hx Asthma: No Hx Chronic Obstructive Pulmonary Disease (COPD): No Hx Cancer: No Hx Cardiac Disorders: No Hx Congestive Heart Failure: No Hx Hypertension: No Hx Hypercholesterolemia: No Hx Pacemaker: No HX Cerebrovascular Accident: No Hx Seizures: No Hx Dementia: No Hx Diabetes: No Hx Gastrointestinal Disorders: Yes (Gastritis) Hx Liver Disease: No Hx Genitourinary Disorders: No Hx Sexually Transmitted Disorders: No (Gonorrhea at 15y/o) Hx Renal Disease (ESRD): No Hx Thyroid Disease: No Hx Human Immunodeficiency Virus (HIV): No (negative) Hx Hepatitis C: No Hx Depression: Yes Hx Suicide Attempt: No Hx Bipolar Disorder: No Hx Schizophrenia: No - Patient Surgical History Past Surgical History: Yes Hx Neurologic Surgery: No Hx Cataract Extraction: No Hx Cardiac Surgery: No Hx Lung Surgery: No Hx Breast Surgery: No Hx Breast Biopsy: No Hx Abdominal Surgery: No Hx Appendectomy: No Hx Cholecystectomy: No Hx Genitourinary Surgery: No Hx Section: No Hx Orthopedic Surgery: Yes (left elbow 12/2015) Other Surgical History: fracture of rt shoulder Anesthesia Reaction: No - PPD History Previous Implant?: Yes Documented Results: Negative w/proof Implanted On Prior R Admission?: Yes Date: 01/12/18 Results: 0 mm - Reproductive History Patient is a Female of Child Bearing Age (11 -55 yrs old): No - Smoking Cessation Smoking history: Former smoker Have you smoked in the past 12 months: Yes Aproximately how many cigarettes per day: 1 If you are a former smoker, when did you quit?: 2012 Hx Chewing Tobacco Use: No Initiated information on smoking cessation: Yes 'Breaking Loose' booklet given: 05/01/18 - Substance & Tx. History Hx Alcohol Use: Yes Hx Substance Use: Yes Substance Use Type: Alcohol, Marijuana - Substances Abused Alcohol Route: Oral Frequency: Daily Amount used: 9 (24oz) cans of [employer] beer Age of first use: 15 Date of Last Use: 05/01/18 Marijuana/Hashish Route: Smoking Frequency: Daily Amount used: $90 Age of first use: 15 Date of Last Use: 05/01/18 Family Disease History - Family Disease History Family Disease History: Diabetes: Mother, CA: Father (prostate ) Admission Physical Exam [facility] - Vital Signs Vital Signs: Vital Signs - 24 hr 05/01/18 12:52 Temperature 96.4 F L Pulse Rate 98 H Respiratory 18 Rate Blood Pressure 133/76 - Physical General Appearance: Yes: Mild Distress, Irritable, Anxious HEENTM: Yes: Within Normal Limits Respiratory: Yes: No Respiratory Distress, No Accessory Muscle Use Neck: Yes: No masses,lesions,Nodules, Trachea in good position Breast: Yes: Breast Exam Deferred Cardiology: Yes: Regular Rate Abdominal: Yes: Non Tender, Distended Genitourinary: Yes: Within Normal Limits Back: Yes: Normal Inspection Musculoskeletal: Yes: full range of Motion, Gait Steady Extremities: Yes: Normal Capillary Refill, Normal Inspection Neurological: Yes: Alert, Motor Strength 5/5 Integumentary: Yes: Within Normal Limits Lymphatic: Yes: Within Normal Limits - Diagnostic (1) Alcohol dependence with uncomplicated withdrawal Current Visit: No Status: Acute (2) Alcohol-induced sleep disorder Current Visit: No Status: Acute (3) Cannabis dependence Current Visit: No Status: Acute (4) Depressed mood Current Visit: No Status: Acute (5) Insomnia Current Visit: No Status: Acute Qualifiers: Insomnia type: unspecified Qualified Code(s): G47.00 - Insomnia, unspecified (6) GERD (gastroesophageal reflux disease) Current Visit: No Status: Chronic Qualifiers: Esophagitis presence: without esophagitis Qualified Code(s): K21.9 - Gastro -esophageal reflux disease without esophagitis Cleared for Admission [facility] - Detox or Rehab [facility] Level of Care: Medically Managed Detox Regimen/Protocol: Librium [facility] Breath Alcohol Content Breath Alcohol Content: 0.233 Urine Drug Screen - Results Drug Screen Negative: No Urine Drug Screen Results: THC-Marijuana, BZO-Benzodiazepines
[2018-05-01] MEDS ORDERED: MENTHOL/PHENOL 1 EACH UD MM PRN (15:49)
[2018-05-01] MEDS ORDERED: IBUPROFEN 400 MG TABLET (FP) PO PRN (15:49)
[2018-05-01] MEDS ORDERED: MAGNESIUM CITRATE 300 ML BOTTLE PO PRN (15:49)
[2018-05-01] MEDS ORDERED: ACETAMINOPHEN 325 MG TABLET (FP) PO PRN (15:49)
[2018-05-01] MEDS ORDERED: MAGNESIUM HYDROX 2400MG/30ML ORAL SUSPENSION 30 ML CUP PO PRN (15:49)
[2018-05-01] MEDS ORDERED: LOPERAMIDE HCL 2 MG CAPSULE PO PRN (15:49)
[2018-05-01] MEDS ORDERED: chlordiazePOXIDE HCL 25 MG CAPSULE PO PRN (15:49)
[2018-05-01] MEDS ORDERED: guaiFENesin/D-METHORPHAN HB 10 ML UNIT-DOSE CUPS PO PRN (15:49)
[2018-05-01] MEDS ORDERED: P-EPHED 60MG/TRIPROLIDI 2.5MG TABLET PO PRN (15:49)
[2018-05-01] MEDS ORDERED: MAG HYDROX/AL HYDROX/SIMETH 30 ML UNIT-DOSE CUP PO PRN (15:49)
[2018-05-01] MEDS: chlordiazePOXIDE HCL 25 MG CAPSULE PO SCH ×2 (17:04→22:31)
[2018-05-01] MEDS ORDERED: MELATONIN 5 MG TABLETS PO PRN (22:00)
[2018-05-01] MEDS ORDERED: THIAMINE HCL 100 MG TABLET (FP) PO SCH (22:00)
[2018-05-01 23:12] LABS: URINE APPEARANCE CLEAR; URINE BILIRUBIN NEGATIVE (<2.0 mg/dL); URINE COLOR COLORLESS; URINE GLUCOSE (UA) NEGATIVE (NEGATIVE); URINE KETONE NEGATIVE (NEGATIVE); URINE LEUK ESTERASE NEGATIVE (NEGATIVE); URINE NITRITE NEGATIVE (NEGATIVE); URINE PROTEIN NEGATIVE (NEGATIVE); URINE UROBILINOGEN NEGATIVE mg/dL (0.2-1.0)
[2018-05-02] MEDS: chlordiazePOXIDE HCL 25 MG CAPSULE PO SCH ×2 (05:35→11:29)
[2018-05-02 09:20] VITALS: BP 136/96; PULSE 103; TEMP 96.2
[2018-05-02] MEDS ORDERED: PRENATAL VITAMINS W/ FOLIC ACID TABLET (FP) PO SCH (10:00)
[2018-05-02 10:27] LABS: HEMOGLOBIN 12.9 GM/dL (11.7-16.9); MCH 28.9 pg (25.7-33.7); MCHC 32.2 g/dl (32.0-35.9); MEAN CELL VOLUME 89.6 fl (80-96); MEAN PLT VOLUME 9.8 fl (7.5-11.1); PLATELET COUNT 132 K/MM3 (134-434); RBC 4.47 M/mm3 (4.00-5.60); RDW 15.2 % (11.9-15.9); WHITE BLOOD COUNT 7.3 K/mm3 (4.0-10.0)
--- NOTE | 2018-05-02 10:36 | DS ---
[facility] Detox Discharge Summary Admission Date: 05/01/18 Discharge Date: 05/02/18 - History Present History: Alcohol Dependence Additional Comments: 52 years old male admitted on 05/01/18 for alcohol withdrawal sx insists to leave the detox unit that his dog is in the hospital patient is alert oriented x 3 no acute distress denies suicidal denies homocidal no self destructive behavior strong recommend aftercare community 12 steps meeting and groups - Physical Exam Results Vital Signs: Vital Signs Temperature 96.2 F L 05/02/18 09:19 Pulse Rate 103 H 05/02/18 09:19 Respiratory Rate 20 05/02/18 09:19 Blood Pressure 136/96 05/02/18 09:19 O2 Sat by Pulse Oximetry (%) Pertinent Admission Physical Exam Findings: alcohol withdrawal sx Vital Signs Temperature 96.2 F L 05/02/18 09:19 Pulse Rate 103 H 05/02/18 09:19 Respiratory Rate 20 05/02/18 09:19 Blood Pressure 136/96 05/02/18 09:19 O2 Sat by Pulse Oximetry (%) Laboratory Last Values WBC 7.3 K/mm3 (4.0-10.0) 05/02/18 07:00 RBC 4.47 M/mm3 (4.00-5.60) 05/02/18 07:00 Hgb 12.9 GM/dL (11.7-16.9) 05/02/18 07:00 Hct 40.0 % (35.4-49) 05/02/18 07:00 MCV 89.6 fl (80-96) 05/02/18 07:00 MCH 28.9 pg (25.7-33.7) 05/02/18 07:00 MCHC 32.2 g/dl (32.0-35.9) 05/02/18 07:00 RDW 15.2 % (11.9-15.9) 05/02/18 07:00 Plt Count 132 K/MM3 (134-434) L D 05/02/18 07:00 MPV 9.8 fl (7.5-11.1) D 05/02/18 07:00 Sodium 141 mmol/L (136-145) 05/02/18 07:00 Potassium 3.7 mmol/L (3.5-5.1) 05/02/18 07:00 Chloride 103 mmol/L (98-107) 05/02/18 07:00 Carbon Dioxide 29 mmol/L (21-32) 05/02/18 07:00 Anion Gap 9 MMOL/L (8-16) 05/02/18 07:00 BUN 10 mg/dL (7-18) 05/02/18 07:00 Creatinine 0.9 mg/dL (0.55-1.3) 05/02/18 07:00 Creat Clearance w eGFR > 60 (>60) 05/02/18 07:00 Random Glucose 132 mg/dL (74-106) H 05/02/18 07:00 Calcium 8.3 mg/dL (8.5-10.1) L 05/02/18 07:00 Total Bilirubin 0.4 mg/dL (0.2-1) 05/02/18 07:00 AST 25 U/L (15-37) 05/02/18 07:00 ALT 23 U/L (13-61) 05/02/18 07:00 Alkaline Phosphatase 69 U/L (45-117) 05/02/18 07:00 Total Protein 6.6 g/dl (6.4-8.2) 05/02/18 07:00 Albumin 3.6 g/dl (3.4-5.0) 05/02/18 07:00 Urine Color Colorless 05/01/18 22:34 Urine Appearance Clear 05/01/18 22:34 Urine pH 6.0 (5.0-8.0) 05/01/18 22:34 Ur Specific [place] 1.002 (1.010-1.035) L 05/01/18 22:34 Urine Protein Negative (NEGATIVE) 05/01/18 22:34 Urine Glucose (UA) Negative (NEGATIVE) 05/01/18 22:34 Urine Ketones Negative (NEGATIVE) 05/01/18 22:34 Urine Blood 1+ (NEGATIVE) H 05/01/18 22:34 Urine Nitrite Negative (NEGATIVE) 05/01/18 22:34 Urine Bilirubin Negative (<2.0 mg/dL) 05/01/18 22:34 Urine Urobilinogen Negative mg/dL (0.2-1.0) 05/01/18 22:34 Ur Leukocyte Esterase Negative (NEGATIVE) 05/01/18 22:34 Urine WBC (Auto) None /hpf (3-5) 05/01/18 22:34 Urine RBC (Auto) None /hpf (0-3) 05/01/18 22:34 RPR Titer Nonreactive (NONREACTIVE) 05/02/18 07:00 lab noted - Treatment Hospital Course: Detox Protocol Followed, Responded well - Medication Discharge Medications: Ambulatory Orders NK [No Known Home Medication] 01/11/18 - Diagnosis (1) Alcohol dependence with uncomplicated withdrawal Status: Acute (2) GERD (gastroesophageal reflux disease) Status: Chronic Qualifiers: Esophagitis presence: without esophagitis Qualified Code(s): K21.9 - Gastro -esophageal reflux disease without esophagitis - AMA Did Patient Leave Against Medical Advice: Yes
[2018-05-02 10:41] LABS: ALBUMIN 3.6 g/dl (3.4-5.0); ALK PHOS 69 U/L (45-117); ANION GAP 9 MMOL/L (8-16); BILIRUBIN,TOTAL 0.4 mg/dL (0.2-1); BLOOD UREA NITROGEN 10 mg/dL (7-18); CALCIUM 8.3 mg/dL (8.5-10.1); CHLORIDE 103 mmol/L (98-107); CO2 29 mmol/L (21-32); CREATININE 0.9 mg/dL (0.55-1.3); GLUCOSE,RANDOM 132 mg/dL (74-106); POTASSIUM 3.7 mmol/L (3.5-5.1); SGOT/AST 25 U/L (15-37); SGPT/ALT 23 U/L (13-61); SODIUM 141 mmol/L (136-145); TOT PROT 6.6 g/dl (6.4-8.2)
[2018-05-02] MEDS ORDERED: chlordiazePOXIDE HCL 25 MG CAPSULE PO SCH (17:00)
--- NOTE | 2018-05-02 23:54 | EKG ---
Test Reason : Blood Pressure : / mmHG Vent. Rate : 098 BPM Atrial Rate : 098 BPM P-R Int : 144 ms QRS Dur : 094 ms QT Int : 338 ms P-R-T Axes : 047 061 066 degrees QTc Int : 431 ms NORMAL SINUS RHYTHM NORMAL ECG WHEN COMPARED WITH ECG OF 03-MAR-2018 19:08, NO SIGNIFICANT CHANGE WAS FOUND Confirmed by ROSARIO CAMPOS MD ([id number]) on 05/02/2018 11:53:42 PM Referred By: Confirmed By:ROSARIO CAMPOS MD
[2018-05-03] MEDS ORDERED: chlordiazePOXIDE 5 MG CAPSULE PO SCH (17:00)
[2018-05-04] MEDS ORDERED: chlordiazePOXIDE HCL 10 MG CAPSULE PO SCH (17:00)
== END 2018-05-02 11:07 | disposition left against medical advice (07) | DRG 894 ==
LOC: YASAS 12:21 → Y3N 16:40
PROC: HZ2ZZZZ Detoxification Services for Substance Abuse Treatment (ICD-10-PCS; principal; 2018-05-01)
DX: F10.230 Alcohol dependence with withdrawal, uncomplicated (principal); F12.20 Cannabis dependence, uncomplicated; F10.282 Alcohol dependence with alcohol-induced sleep disorder; F32.9 Major depressive disorder, single episode, unspecified; K21.9 Gastro-esophageal reflux disease without esophagitis; G47.00 Insomnia, unspecified
CPT/HCPCS: 36415; 80053; 81003; 81015; 85027; 86593; 93005; 93010

== ENCOUNTER 2018-07-05 13:05 | Inpatient (IN) | payer OTHER ==
[2018-07-05 16:06] VITALS: BMI 27.8
[2018-07-05] MEDS ORDERED: MAGNESIUM CITRATE 300 ML BOTTLE PO PRN (16:17)
[2018-07-05] MEDS ORDERED: LOPERAMIDE HCL 2 MG CAPSULE PO PRN (16:17)
[2018-07-05] MEDS ORDERED: hydrOXYzine PAMOATE 50 MG CAPSULE (FP) PO PRN (16:17)
[2018-07-05] MEDS ORDERED: IBUPROFEN 400 MG TABLET (FP) PO PRN (16:17)
[2018-07-05] MEDS ORDERED: P-EPHED 60MG/TRIPROLIDI 2.5MG TABLET PO PRN (16:17)
[2018-07-05] MEDS ORDERED: MAGNESIUM HYDROX 2400MG/30ML ORAL SUSPENSION 30 ML CUP PO PRN (16:17)
[2018-07-05] MEDS ORDERED: guaiFENesin/D-METHORPHAN HB 10 ML UNIT-DOSE CUPS PO PRN (16:17)
[2018-07-05] MEDS ORDERED: ACETAMINOPHEN 325 MG TABLET (FP) PO PRN (16:17)
[2018-07-05] MEDS ORDERED: MAG HYDROX/AL HYDROX/SIMETH 30 ML UNIT-DOSE CUP PO PRN (16:17)
[2018-07-05] MEDS ORDERED: MENTHOL/PHENOL 1 EACH UD MM PRN (16:17)
[2018-07-05] MEDS ORDERED: chlordiazePOXIDE HCL 25 MG CAPSULE PO ONE (16:19)
--- NOTE | 2018-07-05 16:28 | HP ---
CIWA Score Nausea/Vomitin-No Nausea/No Vomiting Muscle Tremors: 2 Anxiety: 6 Agitation: 7-Pacing/Thrashing Paroxysmal Sweats: No Perspiration Orientation: 1-Uncertain about Date Tacttile Disturbances: 0-None Auditory Disturbances: 0-None Visual Disturbances: 0-None Headache: 2-Mild CIWA-Ar Total Score: 18 - Admission Criteria OASAS Guidelines: Admission for Medically Managed Detox: Requires at least one of the followin. CIWA greater than 12 2. Seizures within the past 24 hours 3. Delirium tremens within the past 24 hours 4. Hallucinations within the past 24 hours 5. Acute intervention needed for co occurring medical disorder 6. Acute intervention needed for co occurring psychiatric disorder 7. Severe withdrawal that cannot be handled at a lower level of care (continued vomiting, continued diarrhea, abnormal vital signs) requiring intravenous medication and/or fluids 8. Admission ROS [facility] Chief Complaint: ETOH WITHDRAWAL SX Allergies/Adverse Reactions: Allergies Allergy/AdvReac Type Severity Reaction Status Date / Time No Known Allergies Allergy Verified 07/05/18 16:09 History of Present Illness: PATIENT PRESENTS WITH ETOH WITHDRAWAL SYMPTOMS. PATIENT IS KNOWN TO [facility] AND HAS HAD MULTIPLE ADMISSIONS THIS YEAR, LAST ADMISSION 04/2018. PATIENT STARTED DRINKING AT AGE 15, DRINKS 12 BEERS DAILY, LAST DRINK 1-2 HOURS AGO. PATIENT ALSO SMOKES MARIJUANA 2-3 BLUNTS DAILY, LAST TIME HE SMOKED WAS 1-2 DAYS AGO. PATIENT DENIES SEIZURES, FALLS AND BLACKOUTS. + H/O BINGE DRINKER. PATIENT PMH INCLUDES SLEEP DISTURBANCE AND GERD. PATIENT DENIES SI/HI AND SUICIDE ATTEMPTS. Exam Limitations: Intoxication - Ebola screening Have you traveled outside of the country in the last 21 days: No Have you had contact with anyone from an Ebola affected area: No Have you been sick,other than usual withdrawal symptoms: No - Review of Systems Constitutional: Changes in sleep, Unexplained wgt Loss EENT: reports: No Symptoms Reported Respiratory: reports: No Symptoms reported Cardiac: reports: No Symptoms Reported GI: reports: Poor Fluid Intake : reports: No Symptoms Reported Musculoskeletal: reports: No Symptoms Reported Integumentary: reports: Flushing Neuro: reports: Headache, Tremors Endocrine: reports: Unexplained Weight Loss Hematology: reports: No Symptoms Reported Psychiatric: reports: Anxious (FORGETFUL WITH DATE), Depressed Patient History - Patient Medical History Hx Anemia: No Hx Asthma: No Hx Chronic Obstructive Pulmonary Disease (COPD): No Hx Cancer: No Hx Cardiac Disorders: No Hx Congestive Heart Failure: No Hx Hypertension: No Hx Hypercholesterolemia: No Hx Pacemaker: No HX Cerebrovascular Accident: No Hx Seizures: No Hx Dementia: No Hx Diabetes: No Hx Gastrointestinal Disorders: Yes (acid reflux.) Hx Liver Disease: No Hx Genitourinary Disorders: No Hx Sexually Transmitted Disorders: No Hx Renal Disease (ESRD): No Hx Thyroid Disease: No Hx Human Immunodeficiency Virus (HIV): No (negative) Hx Hepatitis C: No Hx Depression: No Hx Suicide Attempt: No Hx Bipolar Disorder: No Hx Schizophrenia: No - Patient Surgical History Past Surgical History: Yes Hx Neurologic Surgery: No Hx Cataract Extraction: No Hx Cardiac Surgery: No Hx Lung Surgery: No Hx Breast Surgery: No Hx Breast Biopsy: No Hx Abdominal Surgery: No Hx Appendectomy: No Hx Cholecystectomy: No Hx Genitourinary Surgery: No Hx Orthopedic Surgery: Yes (left elbow 12/2015) Other Surgical History: fracture of rt shoulder sx Anesthesia Reaction: No - PPD History Previous Implant?: Yes Documented Results: Negative w/o proof Implanted On Prior [facility] Admission?: No Date: 01/12/18 Results: 0 mm PPD to be Administered?: Yes - Smoking Cessation Smoking history: Former smoker Have you smoked in the past 12 months: Yes Aproximately how many cigarettes per day: 1 If you are a former smoker, when did you quit?: 2012 Hx Chewing Tobacco Use: No Initiated information on smoking cessation: No - Substance & Tx. History Hx Alcohol Use: Yes Hx Substance Use: Yes Substance Use Type: Alcohol, Marijuana Hx Substance Use Treatment: Yes - Substances Abused Alcohol Route: Oral Frequency: Daily Amount used: 12PK BEER Age of first use: 15 Date of Last Use: 07/05/18 Marijuana/Hashish Route: Smoking Frequency: Daily Amount used: 2-3 BLUNTS Age of first use: 15 Date of Last Use: 07/03/18 Family Disease History - Family Disease History Family Disease History: Diabetes: Mother, CA: Father (prostate ) Admission Physical Exam [facility] - Vital Signs Vital Signs: Vital Signs - 24 hr 07/05/18 16:04 Temperature 97.5 F L Pulse Rate 105 H Respiratory 18 Rate Blood Pressure 144/76 - Physical General Appearance: Yes: No Apparent Distress, Appropriately Dressed, Intoxicated, Tremorous, Anxious HEENTM: Yes: EOMI, Hearing grossly Normal, Normal ENT Inspection, Normocephalic , Normal Voice, MYESHA, Pharynx Normal Respiratory: Yes: Chest Non-Tender, Lungs Clear, Normal Breath Sounds, No Respiratory Distress, No Accessory Muscle Use Neck: Yes: No masses,lesions,Nodules, Supple, Trachea in good position Breast: Yes: Breast Exam Deferred Cardiology: Yes: Regular Rhythm, Regular Rate, S1, S2 Abdominal: Yes: Normal Bowel Sounds, Non Tender, Soft Genitourinary: Yes: Within Normal Limits Back: Yes: Normal Inspection Musculoskeletal: Yes: full range of Motion, Gait Steady Extremities: Yes: Normal Inspection, Normal Range of Motion, Non-Tender, Tremors , Erythema Neurological: Yes: cocktail server II-XII NML intact, Alert, Motor Strength 5/5, Normal Response, Other (ANXIOUS) Integumentary: Yes: Normal Color, Dry, Warm, Erythema Lymphatic: Yes: Within Normal Limits - Diagnostic (1) Alcohol dependence with uncomplicated withdrawal Current Visit: Yes Status: Acute (2) Alcohol-induced sleep disorder Current Visit: Yes Status: Acute (3) Cannabis dependence Current Visit: Yes Status: Chronic (4) GERD (gastroesophageal reflux disease) Current Visit: Yes Status: Chronic Qualifiers: Esophagitis presence: without esophagitis Qualified Code(s): K21.9 - Gastro -esophageal reflux disease without esophagitis Cleared for Admission [facility] - Detox or Rehab [facility] Level of Care: Medically Managed Detox Regimen/Protocol: Librium [facility] Breath Alcohol Content Breath Alcohol Content: 0.279 Urine Drug Screen - Results Drug Screen Negative: No Urine Drug Screen Results: THC-Marijuana
[2018-07-05] MEDS: chlordiazePOXIDE HCL 25 MG CAPSULE PO SCH ×2 (16:50→22:07)
[2018-07-05] MEDS: chlordiazePOXIDE HCL 25 MG CAPSULE PO PRN (20:34)
[2018-07-05] MEDS ORDERED: traZODone HCL 50 MG TABLET (FP) PO SCH (22:00)
[2018-07-05] MEDS ORDERED: THIAMINE HCL 100 MG TABLET (FP) PO SCH (22:00)
[2018-07-05] MEDS ORDERED: MELATONIN 5 MG TABLETS PO PRN (22:00)
[2018-07-06] MEDS: chlordiazePOXIDE HCL 25 MG CAPSULE PO SCH ×2 (06:19→10:24)
[2018-07-06] MEDS: chlordiazePOXIDE HCL 25 MG CAPSULE PO PRN (07:49)
[2018-07-06 09:19] VITALS: BP 140/92; TEMP 96.8
[2018-07-06 10:00] LABS: URINE APPEARANCE SLCLOUDY; URINE BILIRUBIN NEGATIVE (<2.0 mg/dL); URINE COLOR YELLOW; URINE GLUCOSE (UA) NEGATIVE (NEGATIVE); URINE KETONE NEGATIVE (NEGATIVE); URINE LEUK ESTERASE NEGATIVE (NEGATIVE); URINE NITRITE NEGATIVE (NEGATIVE); URINE PROTEIN NEGATIVE (NEGATIVE); URINE UROBILINOGEN NEGATIVE mg/dL (0.2-1.0)
[2018-07-06] MEDS ORDERED: PRENATAL VITAMINS W/ FOLIC ACID TABLET (FP) PO SCH (10:00)
[2018-07-06 10:23] LABS: ALBUMIN 3.9 g/dl (3.4-5.0); ALK PHOS 71 U/L (45-117); ANION GAP 11 MMOL/L (8-16); BILIRUBIN,TOTAL 0.8 mg/dL (0.2-1); BLOOD UREA NITROGEN 11 mg/dL (7-18); CALCIUM 8.7 mg/dL (8.5-10.1); CHLORIDE 103 mmol/L (98-107); CO2 27 mmol/L (21-32); CREATININE 0.7 mg/dL (0.55-1.3); GLUCOSE,RANDOM 83 mg/dL (74-106); POTASSIUM 3.6 mmol/L (3.5-5.1); SGOT/AST 33 U/L (15-37); SGPT/ALT 28 U/L (13-61); SODIUM 141 mmol/L (136-145); TOT PROT 7.4 g/dl (6.4-8.2)
[2018-07-06 10:28] LABS: HEMATOCRIT 40.4 % (35.4-49); HEMOGLOBIN 13.6 GM/dL (11.7-16.9); MCH 29.3 pg (25.7-33.7); MCHC 33.7 g/dl (32.0-35.9); MEAN CELL VOLUME 87.1 fl (80-96); MEAN PLT VOLUME 9.2 fl (7.5-11.1); PLATELET COUNT 135 K/MM3 (134-434); RBC 4.64 M/mm3 (4.00-5.60); RDW 16.6 % (11.9-15.9)
[2018-07-06 11:06] LABS: EPI CELLS RARE /HPF (FEW); URINE BACTERIA RARE /hpf (NONE SEEN); URINE HYALINE CAST 4 /lpf; URINE MUCUS MANY
[2018-07-06 11:55] VITALS: PULSE 115
--- NOTE | 2018-07-06 12:19 | PN ---
S CIWA - CIWA Score Nausea/Vomitin-No Nausea/No Vomiting Muscle Tremors: 3 Anxiety: 3 Agitation: 2 Paroxysmal Sweats: 3 Orientation: 0-Oriented Tacttile Disturbances: 2-Mild Itch/Numbness/Burn Auditory Disturbances: 0-None Visual Disturbances: 2-Mild Sensitivity Headache: 0-None Present CIWA-Ar Total Score: 15 [facility] Progress Note (SOAP) Subjective: Stomach Cramping, Sweating, Tremors, Constipation, Anxious. Objective: PATIENT A & O X 3, OBSERVED AMBULATING ON UNIT. IN NO ACUTE DISTRESS. 07/06/18 12:18 Vital Signs Temperature 96.8 F L 07/06/18 09:19 Pulse Rate 115 H 07/06/18 11:30 Respiratory Rate 18 07/06/18 09:19 Blood Pressure 140/92 07/06/18 09:19 O2 Sat by Pulse Oximetry (%) Laboratory Tests 07/06/18 07/06/18 07/06/18 07:00 07:00 07:00 WBC 5.0 RBC 4.64 Hgb 13.6 Hct 40.4 MCV 87.1 MCH 29.3 MCHC 33.7 RDW 16.6 H Plt Count 135 MPV 9.2 Sodium 141 Potassium 3.6 Chloride 103 Carbon Dioxide 27 Anion Gap 11 BUN 11 Creatinine 0.7 Creat Clearance w eGFR > 60 Random Glucose 83 Calcium 8.7 Total Bilirubin 0.8 AST 33 ALT 28 Alkaline Phosphatase 71 Total Protein 7.4 Albumin 3.9 Urine Color Yellow Urine Appearance Slcloudy Urine pH 6.0 Ur Specific [place] 1.014 Urine Protein Negative Urine Glucose (UA) Negative Urine Ketones Negative Urine Blood 1+ H Urine Nitrite Negative Urine Bilirubin Negative Urine Urobilinogen Negative Ur Leukocyte Esterase Negative Urine WBC (Auto) 2 Urine RBC (Auto) 8 Ur Epithelial Cells Rare Urine Bacteria Rare Hyaline Casts 4 Urine Mucus Many LABS NOTED. RPR RESULT PENDING. 07/06/18 12:20 Assessment: 07/06/18 12:19 WITHDRAWAL SYMPTOMS. ELEVATED BLOOD PRESSURE. 07/06/18 12:19 Plan: CONTINUE DETOX. INCREASE DAILY PO FLUID INTAKE. PRN MOM FOR CONSTIPATION.
--- NOTE | 2018-07-06 12:23 | DS ---
[facility] Detox Discharge Summary Admission Date: 07/05/18 Discharge Date: 07/06/18 - History Present History: Alcohol Dependence, Cannabis Dependence Additional Comments: PATIENT REPORTS THAT HE HAS A PERSONAL ISSUE TO ATTEND TO AND DOES NOT WISH TO REMAIN TO COMPLETE DETOX REGIMEN. RISKS OF LEAVING DETOX UNIT AGAINST MEDICAL ADVICE AND PRIOR TO COMPLETION OF DETOX REGIMEN EXPLAINED TO PATIENT. PATIENT ADVISED TO GO IMMEDIATELY TO NEAREST ER SHOULD ANY INTOLERABLE DETOX SYMPTOMS DEVELOP AT ANY TIME. PATIENT VERBALIZED UNDERSTANDING OF ALL INFORMATION / RECOMMENDATIONS PRESENTED TO HIM PRIOR TO DEPARTURE FROM DETOX UNIT. PATIENT LEFT DETOX UNIT IN STABLE MEDICAL CONDITION. Pertinent Past History: Nicotine Dependence, G.E.R.D. - Physical Exam Results Vital Signs: Vital Signs Temperature 96.8 F L 07/06/18 09:19 Pulse Rate 115 H 07/06/18 11:30 Respiratory Rate 18 07/06/18 09:19 Blood Pressure 140/92 07/06/18 09:19 O2 Sat by Pulse Oximetry (%) Pertinent Admission Physical Exam Findings: WITHDRAWAL SYMPTOMS. Laboratory Tests 07/06/18 07/06/18 07/06/18 07:00 07:00 07:00 WBC 5.0 RBC 4.64 Hgb 13.6 Hct 40.4 MCV 87.1 MCH 29.3 MCHC 33.7 RDW 16.6 H Plt Count 135 MPV 9.2 Sodium 141 Potassium 3.6 Chloride 103 Carbon Dioxide 27 Anion Gap 11 BUN 11 Creatinine 0.7 Creat Clearance w eGFR > 60 Random Glucose 83 Calcium 8.7 Total Bilirubin 0.8 AST 33 ALT 28 Alkaline Phosphatase 71 Total Protein 7.4 Albumin 3.9 Urine Color Yellow Urine Appearance Slcloudy Urine pH 6.0 Ur Specific [place] 1.014 Urine Protein Negative Urine Glucose (UA) Negative Urine Ketones Negative Urine Blood 1+ H Urine Nitrite Negative Urine Bilirubin Negative Urine Urobilinogen Negative Ur Leukocyte Esterase Negative Urine WBC (Auto) 2 Urine RBC (Auto) 8 Ur Epithelial Cells Rare Urine Bacteria Rare Hyaline Casts 4 Urine Mucus Many LABS NOTED. - Treatment Hospital Course: Detoxed Safely - Medication Discharge Medications: Ambulatory Orders NK [No Known Home Medication] 01/11/18 - Diagnosis (1) Alcohol dependence with uncomplicated withdrawal Status: Acute (2) Alcohol-induced sleep disorder Status: Acute (3) Cannabis dependence Status: Chronic (4) GERD (gastroesophageal reflux disease) Status: Chronic Qualifiers: Esophagitis presence: without esophagitis Qualified Code(s): K21.9 - Gastro -esophageal reflux disease without esophagitis - AMA Did Patient Leave Against Medical Advice: Yes (PT HAS PERSONAL ISSUE ADN DOES NOT WISH TO REMAIN TO COMPLETE DETOX REGIMEN)
[2018-07-06] MEDS ORDERED: chlordiazePOXIDE HCL 25 MG CAPSULE PO SCH (17:00)
[2018-07-07] MEDS ORDERED: chlordiazePOXIDE 5 MG CAPSULE PO SCH (17:00)
[2018-07-08] MEDS ORDERED: chlordiazePOXIDE HCL 10 MG CAPSULE PO SCH (17:00)
== END 2018-07-06 11:00 | disposition left against medical advice (07) | DRG 894 ==
LOC: YASAS 13:05 → Y6N 16:23
PROVIDERS: ADMIT Neuromusculoskeletal Medicine & OMM; ATTEND Neuromusculoskeletal Medicine & OMM
PROC: HZ2ZZZZ Detoxification Services for Substance Abuse Treatment (ICD-10-PCS; principal; 2018-07-05)
DX: F10.230 Alcohol dependence with withdrawal, uncomplicated (principal); F12.20 Cannabis dependence, uncomplicated; F10.282 Alcohol dependence with alcohol-induced sleep disorder; K21.9 Gastro-esophageal reflux disease without esophagitis
CPT/HCPCS: 36415; 80053; 81003; 81015; 85027; 86593

== ENCOUNTER 2018-08-26 11:43 | Inpatient (IN) | payer OTHER ==
[2018-08-26 13:28] VITALS: BMI 26.6
--- NOTE | 2018-08-26 14:49 | HP ---
CIWA Score Nausea/Vomitin-Mild Nausea/No Vomiting Muscle Tremors: 4-Moderate,w/Arms Extend Anxiety: 4-Mod. Anxious/Guarded Agitation: 4-Moderately Restless Paroxysmal Sweats: 3 Orientation: 0-Oriented Tacttile Disturbances: 0-None Auditory Disturbances: 0-None Visual Disturbances: 0-None Headache: 1-Very Mild CIWA-Ar Total Score: 17 - Admission Criteria OASAS Guidelines: Admission for Medically Managed Detox: Requires at least one of the followin. CIWA greater than 12 2. Seizures within the past 24 hours 3. Delirium tremens within the past 24 hours 4. Hallucinations within the past 24 hours 5. Acute intervention needed for co occurring medical disorder 6. Acute intervention needed for co occurring psychiatric disorder 7. Severe withdrawal that cannot be handled at a lower level of care (continued vomiting, continued diarrhea, abnormal vital signs) requiring intravenous medication and/or fluids 8. Admission ROS [facility] - HPI Chief Complaint: I need help and I promise I wont sign out this time. I need to stop drinking. Allergies/Adverse Reactions: Allergies Allergy/AdvReac Type Severity Reaction Status Date / Time No Known Allergies Allergy Verified 08/26/18 14:49 History of Present Illness: pt is a 53yrold male with a history of alcohol dependence seeking detox for treatment. Exam Limitations: No Limitations - Ebola screening Have you traveled outside of the country in the last 21 days: No Have you had contact with anyone from an Ebola affected area: No Have you been sick,other than usual withdrawal symptoms: No Do you have a fever: No - Review of Systems Constitutional: Chills, Diaphoresis, Loss of Appetite, Night Sweats, Changes in sleep EENT: reports: Tearing, Nose Congestion Respiratory: reports: No Symptoms reported Cardiac: reports: Lightheadedness, Syncope GI: reports: Diarrhea, Nausea, Poor Appetite, Poor Fluid Intake, Vomiting, Indigestion : reports: No Symptoms Reported Musculoskeletal: reports: Back Pain Integumentary: reports: Flushing, Sweating Neuro: reports: Headache, Tingling, Tremors Endocrine: reports: Excessive Sweating, Flushing, Intolerance to Cold, Intolerance to Heat Hematology: reports: No Symptoms Reported Psychiatric: reports: Judgement Intact, Mood/Affect Appropiate, Orientated x3, Agitated, Anxious, Depressed Other Systems: Reviewed and Negative Patient History - Patient Medical History Hx Anemia: No Hx Asthma: No Hx Chronic Obstructive Pulmonary Disease (COPD): No Hx Cancer: No Hx Cardiac Disorders: No Hx Congestive Heart Failure: No Hx Hypertension: No Hx Hypercholesterolemia: No Hx Pacemaker: No HX Cerebrovascular Accident: No Hx Seizures: No Hx Dementia: No Hx Diabetes: No Hx Gastrointestinal Disorders: Yes (acid reflux.) Hx Liver Disease: No Hx Genitourinary Disorders: No Hx Sexually Transmitted Disorders: No Hx Renal Disease (ESRD): No Hx Thyroid Disease: No Hx Human Immunodeficiency Virus (HIV): No (negative) Hx Hepatitis C: No Hx Depression: No Hx Suicide Attempt: No Hx Bipolar Disorder: No Hx Schizophrenia: No - Patient Surgical History Past Surgical History: Yes Hx Neurologic Surgery: No Hx Cataract Extraction: No Hx Cardiac Surgery: No Hx Lung Surgery: No Hx Breast Surgery: No Hx Breast Biopsy: No Hx Abdominal Surgery: No Hx Appendectomy: No Hx Cholecystectomy: No Hx Genitourinary Surgery: No Hx Section: No Hx Orthopedic Surgery: Yes (left elbow 12/2015) Other Surgical History: fracture of rt shoulder sx Anesthesia Reaction: No - PPD History Previous Implant?: Yes Documented Results: Negative w/o proof PPD to be Administered?: Yes - Reproductive History Patient is a Female of Child Bearing Age (11 -55 yrs old): No - Smoking Cessation Smoking history: Never smoked Have you smoked in the past 12 months: No Hx Chewing Tobacco Use: No Initiated information on smoking cessation: No - Substance & Tx. History Hx Alcohol Use: Yes Hx Substance Use: No Substance Use Type: Alcohol Hx Substance Use Treatment: Yes (last detox [facility] but never finished detox) - Substances Abused Alcohol Route: Oral Frequency: Daily Amount used: 3 6PKS Age of first use: 15 Date of Last Use: 08/26/18 Marijuana/Hashish Route: Smoking Frequency: Daily Amount used: 3 TOKES Age of first use: 15 Date of Last Use: 08/26/18 Family Disease History - Family Disease History Family Disease History: Diabetes: Mother, CA: Father (prostate ) Admission Physical Exam [facility] - Vital Signs Vital Signs: Vital Signs - 24 hr 08/26/18 13:25 Temperature 96.4 F L Pulse Rate 109 H Respiratory 20 Rate Blood Pressure 117/78 - Physical General Appearance: Yes: Appropriately Dressed, Moderate Distress, Tremorous, Irritable, Sweating, Anxious HEENTM: Yes: Hearing grossly Normal, Normal Voice, Nasal Congestion, Rhinorrhea Respiratory: Yes: Lungs Clear, Normal Breath Sounds, No Respiratory Distress Neck: Yes: No masses,lesions,Nodules Breast: Yes: Within Normal Limits Cardiology: Yes: Regular Rhythm, Regular Rate, S1, S2, Tachycardia Abdominal: Yes: Normal Bowel Sounds, Non Tender Genitourinary: Yes: Within Normal Limits Back: Yes: Normal Inspection Musculoskeletal: Yes: full range of Motion Extremities: Yes: Normal Capillary Refill, Normal Inspection, Non-Tender, Tremors Neurological: Yes: Fully Oriented, Alert, Normal Response Integumentary: Yes: Normal Color, Diaphoresis Lymphatic: Yes: Within Normal Limits - Diagnostic (1) Alcohol dependence with uncomplicated withdrawal Current Visit: Yes Status: Chronic (2) Alcohol-induced sleep disorder Current Visit: No Status: Acute (3) Depressed mood Current Visit: No Status: Acute (4) Insomnia Current Visit: Yes Status: Chronic Qualifiers: Insomnia type: unspecified Qualified Code(s): G47.00 - Insomnia, unspecified (5) Cannabis dependence Current Visit: Yes Status: Chronic (6) GERD (gastroesophageal reflux disease) Current Visit: Yes Status: Chronic Qualifiers: Esophagitis presence: without esophagitis Qualified Code(s): K21.9 - Gastro -esophageal reflux disease without esophagitis (7) Depression Current Visit: No Status: Suspected Qualifiers: Depression Type: unspecified Qualified Code(s): F32.9 - Major depressive disorder, single episode, unspecified Cleared for Admission [facility] - Detox or Rehab [facility] Level of Care: Medically Managed Detox Regimen/Protocol: Librium [facility] Breath Alcohol Content Breath Alcohol Content: 0.293 Urine Drug Screen - Results Drug Screen Negative: No Urine Drug Screen Results: THC-Marijuana Inpatient Rehab Admission - Rehab Decision to Admit Inpatient rehab admission?: No
[2018-08-26] MEDS ORDERED: MELATONIN 5 MG TABLETS PO PRN (15:00)
[2018-08-26] MEDS ORDERED: MENTHOL/PHENOL 1 EACH UD MM PRN (15:00)
[2018-08-26] MEDS ORDERED: BISMUTH SUBSALICYLATE 524 MG/30 ML UD PO PRN (15:00)
[2018-08-26] MEDS ORDERED: MAGNESIUM HYDROX 2400MG/30ML ORAL SUSPENSION 30 ML CUP PO PRN (15:00)
[2018-08-26] MEDS ORDERED: MAG HYDROX/AL HYDROX/SIMETH 30 ML UNIT-DOSE CUP PO PRN (15:00)
[2018-08-26] MEDS ORDERED: ACETAMINOPHEN 325 MG TABLET (FP) PO PRN ×2 (15:00)
[2018-08-26] MEDS ORDERED: MAGNESIUM CITRATE 300 ML BOTTLE PO PRN (15:00)
[2018-08-26] MEDS ORDERED: traZODone HCL 50 MG TABLET (FP) PO PRN (15:00)
[2018-08-26] MEDS ORDERED: IBUPROFEN 400 MG TABLET (FP) PO PRN (15:00)
[2018-08-26] MEDS ORDERED: hydrOXYzine PAMOATE 25 MG CAPSULE (FP) PO PRN (15:00)
[2018-08-26] MEDS ORDERED: METHOCARBAMOL 500 MG TABLET PO PRN (15:00)
[2018-08-26] MEDS ORDERED: ONDANSETRON *ODT* 4 MG TABLET SL PRN (15:00)
[2018-08-26] MEDS: chlordiazePOXIDE HCL 25 MG CAPSULE PO SCH ×2 (16:24→22:15)
--- NOTE | 2018-08-26 16:43 | CONSULT ---
[facility] Psychiatric Consult - Data Date of interview: 08/26/18 Admission source: [facility] Identifying data: Readmission to [facility] for this 53 y/o [place]-born male self-referred for detoxification (alcohol, cannabis). Evaluated on . Patient is , a father of three, domiciled, currently unemployed and supported on SSI benefits. Substance Abuse History: Confirmed by the patient in this interview. Details in current [facility] report as followed : Smoking history: Never smoked. Have you smoked in the past 12 months: No. Hx Chewing Tobacco Use: No. Initiated information on smoking cessation: No. - Substance & Tx. History. Hx Alcohol Use: Yes. Hx Substance Use: No. Substance Use Type: Alcohol. Hx Substance Use Treatment: Yes (last detox [facility] but never finished detox). - Substances Abused. Alcohol. Route: Oral. Frequency: Daily. Amount used: 3 6PKS. Age of first use: 15. Date of Last Use: 08/26/18. Marijuana/ Hashish. Route: Smoking. Frequency: Daily. Amount used: 3 TOKES. Age of first use: 15. Date of Last Use: 08/26/18 Medical History: Patient endorses good general health. Records indicate a history of orthosurgery for fracture of left elbow and fracture of right shoulder (2016). Psychiatric History: Patient denies history of psychiatric hospitalizations, OPD care or suicide attempts. Physical/Sexual Abuse/Trauma History: Patient denies history of abuse. Stressor : heavy alcohol dependence. Additional Comment: Urine Drug Screen Results: THC-Marijuana. Noted. Mental Status Exam - Mental Status Exam Alert and Oriented to: Time, Place, Person Cognitive Function: Good Patient Appearance: Well Groomed (flushed facial features) Mood: Nervous, Anxious (dysphoric) Affect: Mood Congruent, Constricted (tense affect) Patient Behavior: Fatigued, Talkative, Cooperative Speech Pattern: Clear (more comfortable in lebanese ; fair understanding of finnish ) Voice Loudness: Normal Thought Process: Intact, Goal Oriented Thought Disorder: Not Present Hallucinations: Denies Suicidal Ideation: Denies Homicidal Ideation: Denies Insight/Judgement: Poor Sleep: Poorly, Difficulty falling asleep Appetite: Good Muscle strength/Tone: Normal Gait/Station: Normal Psychiatric Findings - Problem List ([place] 1, 2,3) (1) Alcohol dependence with uncomplicated withdrawal Current Visit: Yes Status: Acute (2) Cannabis dependence Current Visit: Yes Status: Chronic (3) Substance induced mood disorder Current Visit: Yes Status: Chronic (4) Insomnia Current Visit: Yes Status: Chronic Qualifiers: Insomnia type: unspecified Qualified Code(s): G47.00 - Insomnia, unspecified - Initial Treatment Plan Initial Treatment Plan: Psychoeducation. Sleep hygiene. Detoxification in progress. Support. Groups. AA meetings. Records from [facility] : revisited. Seroquel 50 mg po hs (patient's request). Ordered. Side effects/benefits discussed. Mr Stephens is in agreement with this plan of care. Observation.
[2018-08-26] MEDS ORDERED: chlordiazePOXIDE HCL 25 MG CAPSULE PO ONE ×2 (18:00)
[2018-08-26] MEDS ORDERED: THIAMINE HCL 100 MG TABLET (FP) PO SCH (22:00)
[2018-08-26] MEDS ORDERED: QUEtiapine FUMARATE 50 MG TABLET PO SCH (22:00)
[2018-08-27] MEDS: chlordiazePOXIDE HCL 25 MG CAPSULE PO PRN ×2 (03:51→13:15)
[2018-08-27] MEDS: chlordiazePOXIDE HCL 25 MG CAPSULE PO SCH ×2 (05:17→10:09)
[2018-08-27] MEDS ORDERED: PRENATAL VITAMINS W/ FOLIC ACID TABLET (FP) PO SCH (10:00)
[2018-08-27 10:40] LABS: HEMATOCRIT 39.1 % (35.4-49); HEMOGLOBIN 13.5 GM/dL (11.7-16.9); MCH 30.5 pg (25.7-33.7); MCHC 34.6 g/dl (32.0-35.9); MEAN CELL VOLUME 88.1 fl (80-96); MEAN PLT VOLUME 9.6 fl (7.5-11.1); PLATELET COUNT 166 K/MM3 (134-434); RBC 4.44 M/mm3 (4.00-5.60); RDW 17.3 % (11.9-15.9)
[2018-08-27 10:44] LABS: ALBUMIN 4.2 g/dl (3.4-5.0); ALK PHOS 90 U/L (45-117); ANION GAP 9 MMOL/L (8-16); BILIRUBIN,TOTAL 0.3 mg/dL (0.2-1); BLOOD UREA NITROGEN 6 mg/dL (7-18); CALCIUM 8.7 mg/dL (8.5-10.1); CHLORIDE 101 mmol/L (98-107); CO2 26 mmol/L (21-32); CREATININE 0.8 mg/dL (0.55-1.3); GLUCOSE,RANDOM 109 mg/dL (74-106); POTASSIUM 3.9 mmol/L (3.5-5.1); SGOT/AST 53 U/L (15-37); SGPT/ALT 34 U/L (13-61); SODIUM 136 mmol/L (136-145)
[2018-08-27 13:49] VITALS: BP 140/88; TEMP 97.9
--- NOTE | 2018-08-27 13:50 | PN ---
S CIWA - CIWA Score Nausea/Vomitin Muscle Tremors: None Anxiety: 4-Mod. Anxious/Guarded Agitation: 4-Moderately Restless Paroxysmal Sweats: No Perspiration Orientation: 0-Oriented Tacttile Disturbances: 2-Mild Itch/Numbness/Burn Auditory Disturbances: 0-None Visual Disturbances: 0-None Headache: 3-Moderate CIWA-Ar Total Score: 18 [facility] Progress Note (SOAP) Subjective: Anxious, Restless, Vomiting, Body Aches, H/A. Objective: PATIENT A & O X 3, OBSERVED AMBULATING ON UNIT. IN NO ACUTE DISTRESS. 08/27/18 13:51 Vital Signs Temperature 97.9 F 08/27/18 13:48 Pulse Rate 103 H 08/27/18 13:48 Respiratory Rate 20 08/27/18 13:48 Blood Pressure 140/88 08/27/18 13:48 O2 Sat by Pulse Oximetry (%) Laboratory Tests 08/27/18 08/27/18 08/27/18 05:40 05:40 05:40 WBC 5.0 RBC 4.44 Hgb 13.5 Hct 39.1 MCV 88.1 MCH 30.5 MCHC 34.6 RDW 17.3 H Plt Count 166 D MPV 9.6 Sodium 136 Potassium 3.9 Chloride 101 Carbon Dioxide 26 Anion Gap 9 BUN 6 L Creatinine 0.8 Creat Clearance w eGFR 101.12 Random Glucose 109 H Calcium 8.7 Total Bilirubin 0.3 AST 53 H ALT 34 Alkaline Phosphatase 90 Total Protein 8.0 Albumin 4.2 RPR Titer Nonreactive LABS NOTED. Assessment: 08/27/18 13:51 WITHDRAWAL SYMPTOMS. Plan: CONTINUE DETOX. PRN ROBAXIN FOR BODY ACHES / MUSCLE SPASMS.
--- NOTE | 2018-08-27 13:57 | DS ---
[facility] Detox Discharge Summary Admission Date: 08/26/18 Discharge Date: 08/27/18 - History Present History: Alcohol Dependence, Cannabis Dependence Additional Comments: PATIENT DOES NOT WISH TO REMAIN TO COMPLETE DETOX REGIMEN. RISKS OF LEAVING DETOX UNIT AGAINST MEDICAL ADVICE AND PRIOR TO COMPLETION OF DETOX REGIMEN EXPLAINED TO PATIENT. PATIENT ADVISED TO GO IMMEDIATELY TO NEAREST ER SHOULD ANY INTOLERABLE DETOX SYMPTOMS DEVELOP AT ANY TIME. PATIENT VERBALIZED UNDERSTANDING OF ALL INFORMATION / RECOMMENDATIONS PRESENTED TO HIM PRIOR TO DEPARTURE FROM DETOX UNIT. PATIENT LEFT DETOX UNIT IN STABLE MEDICAL CONDITION. Pertinent Past History: History of G.E.R.D., History of Depression, History Of Insomnia. - Physical Exam Results Vital Signs: Vital Signs Temperature 97.9 F 08/27/18 13:48 Pulse Rate 103 H 08/27/18 13:48 Respiratory Rate 20 08/27/18 13:48 Blood Pressure 140/88 08/27/18 13:48 O2 Sat by Pulse Oximetry (%) Pertinent Admission Physical Exam Findings: WITHDRAWAL SYMPTOMS. Laboratory Tests 08/27/18 08/27/18 08/27/18 05:40 05:40 05:40 WBC 5.0 RBC 4.44 Hgb 13.5 Hct 39.1 MCV 88.1 MCH 30.5 MCHC 34.6 RDW 17.3 H Plt Count 166 D MPV 9.6 Sodium 136 Potassium 3.9 Chloride 101 Carbon Dioxide 26 Anion Gap 9 BUN 6 L Creatinine 0.8 Creat Clearance w eGFR 101.12 Random Glucose 109 H Calcium 8.7 Total Bilirubin 0.3 AST 53 H ALT 34 Alkaline Phosphatase 90 Total Protein 8.0 Albumin 4.2 RPR Titer Nonreactive LABS NOTED. - Treatment Hospital Course: Detox Protocol Followed, Detoxed Safely - Medication Discharge Medications: Ambulatory Orders NK [No Known Home Medication] 01/11/18 - Diagnosis (1) Cannabis dependence Current Visit: Yes Status: Chronic (2) GERD (gastroesophageal reflux disease) Current Visit: Yes Status: Chronic Qualifiers: Esophagitis presence: without esophagitis Qualified Code(s): K21.9 - Gastro -esophageal reflux disease without esophagitis (3) Alcohol dependence with uncomplicated withdrawal Current Visit: Yes Status: Acute (4) Insomnia Current Visit: Yes Status: Chronic Qualifiers: Insomnia type: unspecified Qualified Code(s): G47.00 - Insomnia, unspecified (5) Substance induced mood disorder Current Visit: Yes Status: Chronic (6) Alcohol-induced sleep disorder Current Visit: Yes Status: Acute (7) Depressed mood Current Visit: Yes Status: Acute (8) Depression Current Visit: Yes Status: Suspected Qualifiers: Depression Type: unspecified Qualified Code(s): F32.9 - Major depressive disorder, single episode, unspecified - AMA Did Patient Leave Against Medical Advice: Yes (PATIENT DID NOT WISH TO REMAIN TO COMPLETE DETOX REGIMEN.)
[2018-08-27 14:02] VITALS: PULSE 101
[2018-08-27] MEDS ORDERED: chlordiazePOXIDE HCL 25 MG CAPSULE PO SCH (17:00)
[2018-08-28] MEDS ORDERED: chlordiazePOXIDE HCL 10 MG CAPSULE PO PRN (17:00)
[2018-08-28] MEDS ORDERED: chlordiazePOXIDE HCL 10 MG CAPSULE PO SCH (17:00)
[2018-08-29] MEDS ORDERED: chlordiazePOXIDE HCL 10 MG CAPSULE PO SCH (17:00)
== END 2018-08-27 14:00 | disposition left against medical advice (07) | DRG 894 ==
LOC: YASAS 11:43 → Y3N 15:03
PROVIDERS: ADMIT Surgery; ATTEND Surgery
PROC: HZ2ZZZZ Detoxification Services for Substance Abuse Treatment (ICD-10-PCS; principal; 2018-08-26)
DX: F10.230 Alcohol dependence with withdrawal, uncomplicated (principal); F12.20 Cannabis dependence, uncomplicated; F10.282 Alcohol dependence with alcohol-induced sleep disorder; F19.24 Other psychoactive substance dependence with psychoactive substance-induced mood disorder; F32.9 Major depressive disorder, single episode, unspecified; G47.00 Insomnia, unspecified; K21.9 Gastro-esophageal reflux disease without esophagitis
CPT/HCPCS: 36415; 80053; 85027; 86593

== ENCOUNTER 2019-05-16 16:26 | Inpatient (IN) | payer OTHER ==
[2019-05-16 17:46] VITALS: BMI 27.1
--- NOTE | 2019-05-16 19:30 | HP ---
CIWA Score Nausea/Vomitin-No Nausea/No Vomiting Muscle Tremors: 4-Moderate,w/Arms Extend Anxiety: 4-Mod. Anxious/Guarded Agitation: 4-Moderately Restless Paroxysmal Sweats: No Perspiration Orientation: 1-Uncertain about Date Tacttile Disturbances: 0-None Auditory Disturbances: 0-None Visual Disturbances: 0-None Headache: 0-None Present CIWA-Ar Total Score: 13 - Admission Criteria OASAS Guidelines: Admission for Medically Managed Detox: Requires at least one of the followin. CIWA greater than 12 2. Seizures within the past 24 hours 3. Delirium tremens within the past 24 hours 4. Hallucinations within the past 24 hours 5. Acute intervention needed for co occurring medical disorder 6. Acute intervention needed for co occurring psychiatric disorder 7. Severe withdrawal that cannot be handled at a lower level of care (continued vomiting, continued diarrhea, abnormal vital signs) requiring intravenous medication and/or fluids 8. Admitting History and Physical - Smoking History Smoking history: Smoker current status UNK Have you smoked in the past 12 months: No Aproximately how many cigarettes per day: 1 If you are a former smoker, when did you quit?: 2013 - Alcohol/Substance Use Hx Alcohol Use: Yes Admission ROS [facility] - HPI Allergies/Adverse Reactions: Allergies Allergy/AdvReac Type Severity Reaction Status Date / Time No Known Allergies Allergy Verified 05/16/19 17:39 Exam Limitations: Intoxication - Ebola screening Have you traveled outside of the country in the last 21 days: No (N) Have you had contact with anyone from an Ebola affected area: No Do you have a fever: No - Review of Systems Constitutional: See HPI, Loss of Appetite EENT: reports: Other (reading glasses , denies dysphagia) Respiratory: reports: No Symptoms reported Cardiac: reports: No Symptoms Reported GI: reports: Poor Appetite : reports: No Symptoms Reported Musculoskeletal: reports: Joint Pain (r shoulder 2/2 old surgical intervention) Integumentary: reports: No Symptoms Reported Neuro: reports: Tremors, Unsteady Gait Endocrine: reports: No Symptoms Reported Hematology: reports: No Symptoms Reported Psychiatric: reports: Orientated x3, Agitated, Anxious Patient History - Patient Medical History Hx Anemia: No Hx Asthma: No Hx Chronic Obstructive Pulmonary Disease (COPD): No Hx Cancer: No Hx Cardiac Disorders: No Hx Congestive Heart Failure: No Hx Hypertension: No Hx Hypercholesterolemia: No Hx Pacemaker: No HX Cerebrovascular Accident: No Hx Seizures: No Hx Dementia: No Hx Diabetes: No Hx Gastrointestinal Disorders: Yes (acid reflux.) Hx Liver Disease: No Hx Genitourinary Disorders: No Hx Sexually Transmitted Disorders: No Hx Renal Disease (ESRD): No Hx Thyroid Disease: No Hx Human Immunodeficiency Virus (HIV): No (negative) Hx Hepatitis C: No Hx Depression: No Hx Suicide Attempt: No Hx Bipolar Disorder: No Hx Schizophrenia: No - Patient Surgical History Past Surgical History: Yes Hx Neurologic Surgery: No Hx Cataract Extraction: No Hx Cardiac Surgery: No Hx Lung Surgery: No Hx Breast Surgery: No Hx Breast Biopsy: No Hx Abdominal Surgery: No Hx Appendectomy: No Hx Cholecystectomy: No Hx Genitourinary Surgery: No Hx Section: No Hx Orthopedic Surgery: Yes (left elbow 12/2015) Other Surgical History: fracture of rt shoulder sx Anesthesia Reaction: No - PPD History Date: 08/28/18 Results: 0 mm - Smoking Cessation Smoking history: Former smoker Have you smoked in the past 12 months: No Aproximately how many cigarettes per day: 1 If you are a former smoker, when did you quit?: 2012 Hx Chewing Tobacco Use: No Initiated information on smoking cessation: No - Substances abused Alcohol Substance route: Oral Frequency: Daily Amount used: 3 x 6pk beers Age of first use: 15 Date of last use: 05/16/19 Admission Physical Exam [facility] - Vital Signs Vital Signs: Vital Signs - 24 hr 05/16/19 17:39 Temperature 97.7 F Pulse Rate 106 H Respiratory 18 Rate Blood Pressure 127/84 - Physical General Appearance: Yes: Moderate Distress, Alcohol on Breath, Intoxicated, Anxious HEENTM: Yes: EOMI, Hearing grossly Normal, Normocephalic, Normal Voice Respiratory: Yes: Lungs Clear, Normal Breath Sounds, No Respiratory Distress, No Accessory Muscle Use Neck: Yes: No masses,lesions,Nodules, Trachea in good position Cardiology: Yes: Regular Rhythm, Regular Rate, S1, S2, Tachycardia Abdominal: Yes: Non Tender, Soft Extremities: Yes: Normal Range of Motion, Non-Tender, Tremors, Other (right FA surgical scar ( childhood ) , left elbow surgical scar [address] [facility] ulnar nv transposition , left elbow edema of olecranon bursa) Neurological: Yes: Motor Strength 5/5, Disoriented, Depressed Affect Integumentary: Yes: Warm - Diagnostic (1) Alcohol dependence with uncomplicated withdrawal Current Visit: Yes Status: Chronic (2) Alcohol intoxication Current Visit: Yes Status: Acute (3) Cannabis dependence Current Visit: Yes Status: Chronic Breathalyzer - Breathalyzer Breathalyzer: 0.196 Urine Drug Screen - Test Device Lot number: [id number] Expiration date: 01/10/21 - Control Is test valid?: Yes - Results Drug screen NEGATIVE: No Urine drug screen results: THC-Marijuana Inpatient Rehab Admission - Rehab Decision to Admit Inpatient rehab admission?: No
[2019-05-16] MEDS ORDERED: BISMUTH SUBSALICYLATE 524 MG/30 ML UD PO PRN (19:50)
[2019-05-16] MEDS ORDERED: MAG HYDROX/AL HYDROX/SIMETH 30 ML UNIT-DOSE CUP PO PRN (19:50)
[2019-05-16] MEDS ORDERED: ACETAMINOPHEN 325 MG TABLET (FP) PO PRN ×2 (19:50)
[2019-05-16] MEDS ORDERED: MAGNESIUM HYDROX 2400MG/30ML ORAL SUSPENSION 30 ML CUP PO PRN (19:50)
[2019-05-16] MEDS ORDERED: MELATONIN 5 MG TABLETS PO PRN (19:50)
[2019-05-16] MEDS ORDERED: diazePAM 5 MG TABLET PO ONE (19:50)
[2019-05-16] MEDS ORDERED: MENTHOL/PHENOL 1 EACH UD MM PRN (19:50)
[2019-05-16] MEDS ORDERED: MAGNESIUM CITRATE 300 ML BOTTLE PO PRN (19:50)
[2019-05-16] MEDS: diazePAM 5 MG TABLET PO SCH (22:02)
[2019-05-16] MEDS: THIAMINE HCL 100 MG TABLET (FP) PO SCH (22:22)
[2019-05-17] MEDS: diazePAM 5 MG TABLET PO PRN ×3 (01:12→16:38)
[2019-05-17] MEDS: diazePAM 5 MG TABLET PO SCH ×2 (05:14→13:20)
[2019-05-17] MEDS: hydrOXYzine PAMOATE 25 MG CAPSULE (FP) PO PRN (05:17)
--- NOTE | 2019-05-17 09:24 | PN ---
S CIWA - CIWA Score Nausea/Vomitin-Mild Nausea/No Vomiting Muscle Tremors: 3 Anxiety: 3 Agitation: 3 Paroxysmal Sweats: No Perspiration Orientation: 0-Oriented Tacttile Disturbances: 1-Very Mild Itch/Numbness Auditory Disturbances: 0-None Visual Disturbances: 0-None Headache: 2-Mild CIWA-Ar Total Score: 13 [facility] Progress Note (SOAP) Subjective: alert,irritable,anxious,interrupted sleep,tremor,pain in the body Objective: 05/17/19 09:23 Vital Signs Temperature 99.9 F H 05/17/19 09:14 Pulse Rate 113 H 05/17/19 09:14 Respiratory Rate 18 05/17/19 09:14 Blood Pressure 143/86 05/17/19 09:14 O2 Sat by Pulse Oximetry (%) Assessment: 05/17/19 09:23 withdrawal symptom Plan: continue detox valium regimen
[2019-05-17] MEDS: PRENATAL VITAMINS W/ FOLIC ACID TABLET (FP) PO SCH (10:08)
[2019-05-17] MEDS: METHOCARBAMOL 500 MG TABLET PO PRN ×3 (10:09→23:03)
[2019-05-17] MEDS: IBUPROFEN 400 MG TABLET (FP) PO PRN ×2 (11:24→18:16)
[2019-05-17] MEDS ORDERED: LORazepam 1 MG TABLET PO PRN (17:17)
--- NOTE | 2019-05-17 17:24 | PN ---
[facility] CIWA - CIWA Score Nausea/Vomitin-Mild Nausea/No Vomiting Muscle Tremors: 3 Anxiety: 3 Agitation: 3 Paroxysmal Sweats: 3 Orientation: 0-Oriented Tacttile Disturbances: 0-None Auditory Disturbances: 0-None Visual Disturbances: 0-None Headache: 1-Very Mild CIWA-Ar Total Score: 14 [facility] Progress Note (SOAP) Objective: 05/17/19 17:23 pt complaining of withdrawal Sx- on Valium. Wants librium. Called pharmacy- no librium available. CIWA- ~15. Will change to Ativan- d/w pharmacy and nursing
[2019-05-17] MEDS: LORazepam 2 MG TABLET PO SCH ×2 (17:51→22:07)
[2019-05-17] MEDS: THIAMINE HCL 100 MG TABLET (FP) PO SCH (22:07)
[2019-05-18] MEDS: hydrOXYzine PAMOATE 25 MG CAPSULE (FP) PO PRN (01:18)
[2019-05-18] MEDS ORDERED: diazePAM 5 MG TABLET PO SCH (06:00)
[2019-05-18] MEDS: LORazepam 2 MG TABLET PO SCH (06:23)
[2019-05-18] MEDS: IBUPROFEN 400 MG TABLET (FP) PO PRN (07:27)
--- NOTE | 2019-05-18 09:16 | PN ---
S CIWA - CIWA Score Nausea/Vomitin-Mild Nausea/No Vomiting Muscle Tremors: 2 Anxiety: 2 Agitation: 2 Paroxysmal Sweats: No Perspiration Orientation: 0-Oriented Tacttile Disturbances: 1-Very Mild Itch/Numbness Auditory Disturbances: 0-None Visual Disturbances: 0-None Headache: 2-Mild CIWA-Ar Total Score: 10 [facility] Progress Note (SOAP) Subjective: alert,irritable,anxious,interrupted sleep Objective: 05/18/19 09:19 Vital Signs Temperature 97.9 F 05/18/19 06:22 Pulse Rate 90 05/18/19 06:22 Respiratory Rate 18 05/18/19 06:22 Blood Pressure 131/94 05/18/19 06:22 O2 Sat by Pulse Oximetry (%) Assessment: 05/18/19 09:20 withdrawal symptom Plan: continue detox ativan regimen whch is chaned by Dr Murcia yesterday
--- NOTE | 2019-05-18 09:30 | PN ---
[facility] Progress Note Note: patient did not want to complete treatment,all attempts to convince patient to stay with no avail, high risk of relapsing explained,patient understood,singed release ama,follow upo with medical provider at [facility], to er if emergency problem
[2019-05-18 09:31] VITALS: BP 117/87; PULSE 111; TEMP 96.9
--- NOTE | 2019-05-18 09:32 | DS ---
[facility] Detox Discharge Summary Admission Date: 05/16/19 Discharge Date: 05/18/19 - History Present History: Alcohol Dependence, Cannabis Dependence Additional Comments: patient signed release ama - Physical Exam Results Vital Signs: Vital Signs Temperature 96.9 F L 05/18/19 09:30 Pulse Rate 111 H 05/18/19 09:30 Respiratory Rate 18 05/18/19 09:30 Blood Pressure 117/87 05/18/19 09:30 O2 Sat by Pulse Oximetry (%) Pertinent Admission Physical Exam Findings: withdrawal signs and symptom - Medication Discharge Medications: Ambulatory Orders NK [No Known Home Medication] 01/11/18 - Diagnosis (1) Alcohol intoxication Current Visit: Yes Status: Acute (2) Alcohol dependence with uncomplicated withdrawal Current Visit: Yes Status: Chronic (3) Cannabis dependence Current Visit: Yes Status: Chronic - AMA Did Patient Leave Against Medical Advice: Yes
[2019-05-18] MEDS ORDERED: LORazepam 0.5 MG TABLET PO ONE (10:08)
--- NOTE | 2019-05-18 10:10 | PN ---
[facility] Progress Note Note: ativan 0.5mg po one dose,patient signed release ama
[2019-05-18] MEDS: PRENATAL VITAMINS W/ FOLIC ACID TABLET (FP) PO SCH (10:49)
[2019-05-19] MEDS ORDERED: LORazepam 1 MG TABLET PO SCH (05:00)
[2019-05-19] MEDS ORDERED: diazePAM 5 MG TABLET PO ONE (06:00)
[2019-05-20] MEDS ORDERED: LORazepam 0.5 MG TABLET PO PRN
[2019-05-20] MEDS ORDERED: LORazepam 0.5 MG TABLET PO SCH (05:00)
[2019-05-21] MEDS ORDERED: LORazepam 0.5 MG TABLET PO ONE (05:00)
== END 2019-05-18 11:11 | disposition left against medical advice (07) | DRG 894 ==
LOC: YASAS 16:26 → Y6N 19:59
PROVIDERS: ADMIT Allergy & Immunology; ATTEND Allergy & Immunology
PROC: HZ2ZZZZ Detoxification Services for Substance Abuse Treatment (ICD-10-PCS; principal; 2019-05-16)
DX: F10.230 Alcohol dependence with withdrawal, uncomplicated (principal); F10.220 Alcohol dependence with intoxication, uncomplicated; F12.20 Cannabis dependence, uncomplicated; K21.9 Gastro-esophageal reflux disease without esophagitis
CPT/HCPCS: 36415; 80053; 80307; 85025; 99283-25

== ENCOUNTER 2020-12-23 16:47 | Inpatient (IN) | payer OTHER ==
[2020-12-23 20:37] VITALS: BMI 25.5
[2020-12-23] MEDS ORDERED: MAG HYDROX/AL HYDROX/SIMETH 30 ML UNIT-DOSE CUP PO PRN (22:02)
[2020-12-23] MEDS ORDERED: MAGNESIUM HYDROX 2400MG/30ML ORAL SUSPENSION 30 ML CUP PO PRN (22:02)
[2020-12-23] MEDS ORDERED: diazePAM 5 MG TABLET PO PRN (22:02)
[2020-12-23] MEDS ORDERED: ACETAMINOPHEN 325 MG TABLET (FP) PO PRN ×2 (22:02)
[2020-12-23] MEDS ORDERED: BISMUTH SUBSALICYLATE 524 MG/30 ML PO PRN (22:02)
[2020-12-23] MEDS ORDERED: ONDANSETRON *ODT* 4 MG TABLET SL PRN (22:02)
[2020-12-23] MEDS ORDERED: MENTHOL/PHENOL 1 EACH UD MM PRN (22:02)
[2020-12-23] MEDS ORDERED: MAGNESIUM CITRATE 300 ML BOTTLE PO PRN (22:02)
[2020-12-23] MEDS ORDERED: TRIMETHOBENZAMIDE HCL 200MG/2ML INJ IM ONE ×2 (22:05→22:15)
[2020-12-23] MEDS: diazePAM 5 MG TABLET PO SCH (23:53)
[2020-12-23] MEDS: METHOCARBAMOL 500 MG TABLET PO PRN (23:55)
[2020-12-24] MEDS: diazePAM 5 MG TABLET PO SCH ×4 (05:08→22:17)
[2020-12-24] MEDS: IBUPROFEN 400 MG TABLET (FP) PO PRN (05:09)
[2020-12-24] MEDS: METHOCARBAMOL 500 MG TABLET PO PRN (05:09)
[2020-12-24] MEDS ORDERED: PRENATAL VITAMINS W/ FOLIC ACID TABLET (FP) PO SCH (10:00)
[2020-12-24] MEDS: BACITRACIN 0.9 GM PACKET TP SCH ×2 (10:26→22:17)
[2020-12-24] MEDS: SULFAMETHOXAZOLE/TRIMETHOPRIM 800MG/160MG D.S. TABLET PO SCH ×2 (10:28→22:16)
[2020-12-24 12:38] LABS: HEMATOCRIT 40.5 % (35.4-49); HEMOGLOBIN 13.6 GM/dL (11.7-16.9); MCHC 33.5 g/dl (32.0-35.9); MEAN CELL VOLUME 83.6 fl (80-96); MEAN PLT VOLUME 9.5 fl (7.5-11.1); PLATELET COUNT 108 10^3/uL (134-434); RBC 4.84 M/mm3 (4.00-5.60); RDW 18.4 % (11.9-15.9); WHITE BLOOD COUNT 6.3 K/mm3 (4.0-10.0)
[2020-12-24 12:47] LABS: ALBUMIN 4.4 g/dl (3.4-5.0); BLOOD UREA NITROGEN 6.4 mg/dL (7-18); CALCIUM 8.6 mg/dL (8.5-10.1)
[2020-12-24 12:51] LABS: CREATININE 0.7 mg/dL (0.55-1.3)
[2020-12-24 12:52] LABS: BILIRUBIN,TOTAL 0.9 mg/dL (0.2-1); TOT PROT 8.2 g/dl (6.4-8.2)
[2020-12-24] MEDS: ARTIFICIAL TEARS (POLYVINYL ALCOHOL) OPTH DROPS OU PRN ×3 (14:50→22:16)
[2020-12-24] MEDS ORDERED: PANTOPRAZOLE 40 MG TABLET PO SCH (18:15)
[2020-12-24] MEDS ORDERED: THIAMINE HCL 100 MG TABLET (FP) PO SCH (22:00)
[2020-12-24] MEDS ORDERED: MELATONIN 5 MG TABLETS PO SCH (22:00)
[2020-12-24] MEDS ORDERED: SUVOREXANT 10 MG TABLET PO PRN (22:00)
[2020-12-25] MEDS ORDERED: diazePAM 5 MG TABLET PO SCH (06:00)
[2020-12-25] MEDS: IBUPROFEN 400 MG TABLET (FP) PO PRN (06:02)
[2020-12-25] MEDS: METHOCARBAMOL 500 MG TABLET PO PRN (06:02)
[2020-12-25 08:57] VITALS: BP 103/75; PULSE 106; TEMP 96.9
[2020-12-26] MEDS ORDERED: diazePAM 5 MG TABLET PO SCH (06:00)
[2020-12-27] MEDS ORDERED: diazePAM 5 MG TABLET PO ONE (06:00)
== END 2020-12-25 11:02 | disposition left against medical advice (07) | DRG 894 ==
LOC: YASAS 16:47 → Y3N 20:33
PROVIDERS: ADMIT Allergy & Immunology; ATTEND Allergy & Immunology
PROC: HZ2ZZZZ Detoxification Services for Substance Abuse Treatment (ICD-10-PCS; principal; 2020-12-23)
DX: F10.230 Alcohol dependence with withdrawal, uncomplicated (principal); F12.20 Cannabis dependence, uncomplicated; F10.282 Alcohol dependence with alcohol-induced sleep disorder; F19.24 Other psychoactive substance dependence with psychoactive substance-induced mood disorder; F32.9 Major depressive disorder, single episode, unspecified; G47.00 Insomnia, unspecified; K21.9 Gastro-esophageal reflux disease without esophagitis; H04.123 Dry eye syndrome of bilateral lacrimal glands; S91.101A Unspecified open wound of right great toe without damage to nail, initial encounter; X58.XXXA Exposure to other specified factors, initial encounter; Y92.9 Unspecified place or not applicable
CPT/HCPCS: 36415; 80053; 85027; 86780; 93005; 93010; C9803; Q0162; U0003; U0005

== ENCOUNTER 2021-03-25 10:39 | Inpatient (IN) | payer OTHER ==
[2021-03-25 11:42] VITALS: BMI 22.5
[2021-03-25] MEDS ORDERED: BISMUTH SUBSALICYLATE 262 MG/15 ML BTL PO PRN (12:07)
[2021-03-25] MEDS ORDERED: diazePAM 5 MG TABLET PO ONE (12:07)
[2021-03-25] MEDS ORDERED: MAGNESIUM HYDROX 2400MG/30ML ORAL SUSPENSION 30 ML CUP PO PRN (12:07)
[2021-03-25] MEDS ORDERED: MENTHOL/PHENOL 1 EACH UD MM PRN (12:07)
[2021-03-25] MEDS ORDERED: ACETAMINOPHEN 325 MG TABLET (FP) PO PRN ×2 (12:07)
[2021-03-25] MEDS ORDERED: NICOTINE 10 MG CARTRIDGE (INHALER) IH PRN (12:07)
[2021-03-25] MEDS ORDERED: MAGNESIUM CITRATE 300 ML BOTTLE PO PRN (12:07)
[2021-03-25] MEDS ORDERED: ONDANSETRON *ODT* 4 MG TABLET SL PRN (12:07)
[2021-03-25] MEDS ORDERED: MAG HYDROX/AL HYDROX/SIMETH 30 ML UNIT-DOSE CUP PO PRN (12:07)
[2021-03-25] MEDS: PRENATAL VITAMINS W/ FOLIC ACID TABLET (FP) PO SCH (13:05)
[2021-03-25] MEDS ORDERED: hydrOXYzine PAMOATE 25 MG CAPSULE (FP) PO SCH (14:00)
[2021-03-25] MEDS: diazePAM 5 MG TABLET PO PRN ×2 (14:01→19:32)
[2021-03-25 17:26] LABS: HEMOGLOBIN 13.7 GM/dL (11.7-16.9); MCHC 33.3 g/dl (32.0-35.9); MEAN CELL VOLUME 89.9 fl (80-96); MEAN PLT VOLUME 9.9 fl (7.5-11.1); PLATELET COUNT 83 10^3/uL (134-434); RBC 4.56 M/mm3 (4.00-5.60); RDW 19.3 % (11.9-15.9)
[2021-03-25 17:31] LABS: ALBUMIN 4.2 g/dl (3.4-5.0); BLOOD UREA NITROGEN 5.2 mg/dL (7-18)
[2021-03-25 17:34] LABS: CREATININE 0.6 mg/dL (0.55-1.3)
[2021-03-25 17:35] LABS: BILIRUBIN,TOTAL 0.9 mg/dL (0.2-1)
[2021-03-25 17:36] LABS: TOT PROT 8.1 g/dl (6.4-8.2)
[2021-03-25] MEDS: diazePAM 5 MG TABLET PO SCH ×2 (17:40→22:22)
[2021-03-25] MEDS: METHOCARBAMOL 500 MG TABLET PO PRN (22:21)
[2021-03-25] MEDS: THIAMINE HCL 100 MG TABLET (FP) PO SCH (22:21)
[2021-03-25] MEDS: MELATONIN 5 MG TABLETS PO SCH (22:22)
[2021-03-26] MEDS: diazePAM 5 MG TABLET PO PRN (00:57)
[2021-03-26] MEDS: diazePAM 5 MG TABLET PO SCH ×4 (05:49→22:12)
[2021-03-26] MEDS: PRENATAL VITAMINS W/ FOLIC ACID TABLET (FP) PO SCH (10:08)
[2021-03-26] MEDS ORDERED: FLU VACC QS2021-22(6MOS UP)/PF 60 MCG/0.5 ML SYRINGE IM ONE (12:00)
[2021-03-26] MEDS: hydrOXYzine PAMOATE 25 MG CAPSULE (FP) PO PRN ×2 (12:02→17:21)
[2021-03-26] MEDS: METHOCARBAMOL 500 MG TABLET PO PRN ×2 (12:04→17:21)
[2021-03-26] MEDS: ARTIFICIAL TEARS (POLYVINYL ALCOHOL) OPTH DROPS OU SCH ×2 (13:33→21:08)
[2021-03-26] MEDS: THIAMINE HCL 100 MG TABLET (FP) PO SCH (22:10)
[2021-03-26] MEDS: QUEtiapine FUMARATE 50 MG TABLET PO SCH (22:10)
[2021-03-26] MEDS: MELATONIN 5 MG TABLETS PO SCH (22:10)
[2021-03-27] MEDS: diazePAM 5 MG TABLET PO SCH ×3 (04:59→21:08)
[2021-03-27] MEDS: ARTIFICIAL TEARS (POLYVINYL ALCOHOL) OPTH DROPS OU SCH ×3 (05:00→21:10)
[2021-03-27] MEDS: IBUPROFEN 400 MG TABLET (FP) PO PRN (08:35)
[2021-03-27] MEDS: diazePAM 5 MG TABLET PO PRN ×2 (10:17→19:30)
[2021-03-27] MEDS: METHOCARBAMOL 500 MG TABLET PO PRN (10:17)
[2021-03-27] MEDS: PRENATAL VITAMINS W/ FOLIC ACID TABLET (FP) PO SCH (10:18)
[2021-03-27] MEDS: hydrOXYzine PAMOATE 25 MG CAPSULE (FP) PO PRN ×2 (10:19→22:13)
[2021-03-27 10:59] LABS: HEMATOCRIT 43.5 % (35.4-49); HEMOGLOBIN 14.4 GM/dL (11.7-16.9); MCHC 33.2 g/dl (32.0-35.9); MEAN CELL VOLUME 90.4 fl (80-96); MEAN PLT VOLUME 9.7 fl (7.5-11.1); PLATELET COUNT 103 10^3/uL (134-434); RBC 4.81 M/mm3 (4.00-5.60); WHITE BLOOD COUNT 4.7 K/mm3 (4.0-10.0)
[2021-03-27 11:05] LABS: INR 0.9 (0.83-1.09); PROTHROMBIN TIME (PATIENT) 10.5 SEC (9.7-13.0)
[2021-03-27 11:22] LABS: SGOT/AST 172 U/L (15-37); SGPT/ALT 137 U/L (13-61)
[2021-03-27] MEDS: THIAMINE HCL 100 MG TABLET (FP) PO SCH (21:09)
[2021-03-27] MEDS: MELATONIN 5 MG TABLETS PO SCH (21:09)
[2021-03-27] MEDS: QUEtiapine FUMARATE 50 MG TABLET PO SCH (21:09)
[2021-03-28] MEDS: diazePAM 5 MG TABLET PO PRN ×2 (00:38→10:09)
[2021-03-28] MEDS: diazePAM 5 MG TABLET PO SCH ×2 (05:41→17:35)
[2021-03-28] MEDS: ARTIFICIAL TEARS (POLYVINYL ALCOHOL) OPTH DROPS OU SCH ×3 (06:06→22:48)
[2021-03-28] MEDS: hydrOXYzine PAMOATE 25 MG CAPSULE (FP) PO PRN ×3 (06:08→17:35)
[2021-03-28] MEDS: IBUPROFEN 400 MG TABLET (FP) PO PRN ×2 (07:50→18:33)
[2021-03-28] MEDS: PRENATAL VITAMINS W/ FOLIC ACID TABLET (FP) PO SCH (10:10)
[2021-03-28] MEDS: METHOCARBAMOL 500 MG TABLET PO PRN ×2 (10:56→22:04)
[2021-03-28] MEDS: QUEtiapine FUMARATE 50 MG TABLET PO SCH (22:03)
[2021-03-28] MEDS: MELATONIN 5 MG TABLETS PO SCH (22:03)
[2021-03-28] MEDS: THIAMINE HCL 100 MG TABLET (FP) PO SCH (22:03)
[2021-03-29] MEDS ORDERED: diazePAM 5 MG TABLET PO ONE (06:00)
[2021-03-29] MEDS: ARTIFICIAL TEARS (POLYVINYL ALCOHOL) OPTH DROPS OU SCH (06:08)
[2021-03-29 06:58] VITALS: BP 114/83; PULSE 101; TEMP 96.8
[2021-03-29] MEDS: PRENATAL VITAMINS W/ FOLIC ACID TABLET (FP) PO SCH (09:29)
[2021-03-29] MEDS: hydrOXYzine PAMOATE 25 MG CAPSULE (FP) PO PRN (09:29)
== END 2021-03-29 09:32 | disposition home or self-care (01) | DRG 897 ==
LOC: YASAS 10:39 → Y3N 11:55
PROVIDERS: ADMIT Allergy & Immunology; ATTEND Allergy & Immunology
PROC: HZ2ZZZZ Detoxification Services for Substance Abuse Treatment (ICD-10-PCS; principal; 2021-03-25)
DX: F10.230 Alcohol dependence with withdrawal, uncomplicated (principal); F12.20 Cannabis dependence, uncomplicated; F17.210 Nicotine dependence, cigarettes, uncomplicated; F19.24 Other psychoactive substance dependence with psychoactive substance-induced mood disorder; K21.9 Gastro-esophageal reflux disease without esophagitis; G47.00 Insomnia, unspecified; Z48.02 Encounter for removal of sutures; Z56.0 Unemployment, unspecified; Z59.00 Homelessness unspecified
CPT/HCPCS: 36415; 80053; 84450; 84460; 85027; 85610; 86780; 90686; C9803; G0008; U0003; U0005

== ENCOUNTER 2021-06-16 09:57 | Inpatient (IN) | payer OTHER ==
[2021-06-16] MEDS ORDERED: BISMUTH SUBSALICYLATE 524 MG/30 ML PO PRN (10:21)
[2021-06-16] MEDS ORDERED: ONDANSETRON *ODT* 4 MG TABLET SL PRN (10:21)
[2021-06-16] MEDS ORDERED: ACETAMINOPHEN 325 MG TABLET (FP) PO PRN ×2 (10:21)
[2021-06-16] MEDS ORDERED: MAGNESIUM CITRATE 300 ML BOTTLE PO PRN (10:21)
[2021-06-16] MEDS ORDERED: MENTHOL/PHENOL 1 EACH UD MM PRN (10:21)
[2021-06-16] MEDS ORDERED: MAGNESIUM HYDROX 2400MG/30ML ORAL SUSPENSION 30 ML CUP PO PRN (10:21)
[2021-06-16] MEDS ORDERED: MAG HYDROX/AL HYDROX/SIMETH 30 ML UNIT-DOSE CUP PO PRN (10:21)
[2021-06-16 10:42] VITALS: BMI 25.3
[2021-06-16] MEDS: METHOCARBAMOL 500 MG TABLET PO PRN (13:00)
[2021-06-16] MEDS: PRENATAL VITAMINS W/ FOLIC ACID TABLET (FP) PO SCH (13:00)
[2021-06-16] MEDS: chlordiazePOXIDE HCL 25 MG CAPSULE PO SCH ×3 (13:01→23:33)
[2021-06-16] MEDS: hydrOXYzine PAMOATE 25 MG CAPSULE (FP) PO SCH ×3 (13:03→23:32)
[2021-06-16 14:52] LABS: HEMATOCRIT 38.7 % (35.4-49); HEMOGLOBIN 12.9 GM/dL (11.7-16.9); MCH 29.3 pg (25.7-33.7); MCHC 33.2 g/dl (32.0-35.9); MEAN CELL VOLUME 88.3 fl (80-96); MEAN PLT VOLUME 9.5 fl (7.5-11.1); PLATELET COUNT 156 10^3/uL (134-434); RBC 4.39 M/mm3 (4.00-5.60); RDW 15.9 % (11.9-15.9); WHITE BLOOD COUNT 8.3 K/mm3 (4.0-10.0)
[2021-06-16 14:59] LABS: ALBUMIN 3.9 g/dl (3.4-5.0); BLOOD UREA NITROGEN 10.8 mg/dL (7-18); CALCIUM 8.3 mg/dL (8.5-10.1)
[2021-06-16 15:01] LABS: BILIRUBIN,TOTAL 0.7 mg/dL (0.2-1); TOT PROT 7.2 g/dl (6.4-8.2)
[2021-06-16 15:02] LABS: CREATININE 0.8 mg/dL (0.55-1.3)
[2021-06-16] MEDS: IBUPROFEN 400 MG TABLET (FP) PO PRN (16:44)
[2021-06-16] MEDS ORDERED: SUVOREXANT 10 MG TABLET PO PRN (22:00)
[2021-06-16] MEDS ORDERED: MELATONIN 5 MG TABLETS PO SCH (22:00)
[2021-06-16] MEDS ORDERED: THIAMINE HCL 100 MG TABLET (FP) PO SCH (22:00)
[2021-06-17] MEDS: IBUPROFEN 400 MG TABLET (FP) PO PRN (03:39)
[2021-06-17] MEDS: chlordiazePOXIDE HCL 25 MG CAPSULE PO SCH ×2 (05:32→10:21)
[2021-06-17] MEDS: hydrOXYzine PAMOATE 25 MG CAPSULE (FP) PO SCH ×3 (05:32→14:40)
[2021-06-17] MEDS: chlordiazePOXIDE HCL 25 MG CAPSULE PO PRN ×2 (08:44→14:40)
[2021-06-17] MEDS: PRENATAL VITAMINS W/ FOLIC ACID TABLET (FP) PO SCH (10:20)
[2021-06-17] MEDS ORDERED: MAG HYDROX/AL HYDROX/SIMETH 30 ML UNIT-DOSE CUP PO ONE (10:30)
[2021-06-17] MEDS ORDERED: NAPROXEN 375 MG TABLET PO SCH (10:30)
[2021-06-17] MEDS ORDERED: FAMOTIDINE 20 MG TABLET PO SCH (10:45)
[2021-06-17 14:05] VITALS: BP 120/84; PULSE 86; TEMP 98.4
[2021-06-17] MEDS: METHOCARBAMOL 500 MG TABLET PO PRN (14:40)
[2021-06-18] MEDS ORDERED: chlordiazePOXIDE HCL 25 MG CAPSULE PO SCH (05:00)
[2021-06-19] MEDS ORDERED: chlordiazePOXIDE HCL 10 MG CAPSULE PO PRN
[2021-06-19] MEDS ORDERED: chlordiazePOXIDE HCL 10 MG CAPSULE PO SCH (05:00)
[2021-06-20] MEDS ORDERED: chlordiazePOXIDE HCL 10 MG CAPSULE PO SCH (05:00)
[2021-06-21] MEDS ORDERED: chlordiazePOXIDE HCL 10 MG CAPSULE PO ONE (05:00)
== END 2021-06-17 15:40 | disposition left against medical advice (07) | DRG 894 ==
LOC: YASAS 09:57 → Y6N 12:35
PROVIDERS: ADMIT Allergy & Immunology; ATTEND Allergy & Immunology
PROC: HZ2ZZZZ Detoxification Services for Substance Abuse Treatment (ICD-10-PCS; principal; 2021-06-16)
DX: F10.230 Alcohol dependence with withdrawal, uncomplicated (principal); F14.20 Cocaine dependence, uncomplicated; F19.280 Other psychoactive substance dependence with psychoactive substance-induced anxiety disorder; F19.282 Other psychoactive substance dependence with psychoactive substance-induced sleep disorder; F11.10 Opioid abuse, uncomplicated; F12.20 Cannabis dependence, uncomplicated; F10.282 Alcohol dependence with alcohol-induced sleep disorder; F34.1 Dysthymic disorder; K21.9 Gastro-esophageal reflux disease without esophagitis; Z56.0 Unemployment, unspecified
CPT/HCPCS: 36415; 80053; 85027; 86780; C9803; U0003; U0005

== ENCOUNTER 2021-08-24 12:15 | Inpatient (IN) | payer OTHER ==
[2021-08-24 14:52] VITALS: BMI 26.3
[2021-08-24] MEDS ORDERED: chlordiazePOXIDE HCL 25 MG CAPSULE PO PRN (14:54)
[2021-08-24] MEDS ORDERED: MAG HYDROX/AL HYDROX/SIMETH 30 ML UNIT-DOSE CUP PO PRN (14:54)
[2021-08-24] MEDS ORDERED: BISMUTH SUBSALICYLATE 524 MG/30 ML PO PRN (14:54)
[2021-08-24] MEDS ORDERED: MAGNESIUM CITRATE 300 ML BOTTLE PO PRN (14:54)
[2021-08-24] MEDS ORDERED: NICOTINE 10 MG CARTRIDGE (INHALER) IH PRN (14:54)
[2021-08-24] MEDS ORDERED: MAGNESIUM HYDROX 2400MG/30ML ORAL SUSPENSION 30 ML CUP PO PRN (14:54)
[2021-08-24] MEDS ORDERED: LOPERAMIDE HCL 2 MG CAPSULE PO PRN (14:54)
[2021-08-24] MEDS ORDERED: ACETAMINOPHEN 325 MG TABLET (FP) PO PRN (14:54)
[2021-08-24] MEDS ORDERED: MENTHOL/PHENOL 1 EACH UD MM PRN (14:54)
[2021-08-24] MEDS ORDERED: ONDANSETRON *ODT* 4 MG TABLET SL PRN (14:54)
[2021-08-24] MEDS ORDERED: chlordiazePOXIDE HCL 25 MG CAPSULE ONE (15:23)
[2021-08-24] MEDS ORDERED: LORazepam 2 MG TABLET PO SCH (17:00)
[2021-08-24] MEDS ORDERED: chlordiazePOXIDE HCL 25 MG CAPSULE PO SCH (17:00)
[2021-08-24] MEDS: METHOCARBAMOL 500 MG TABLET PO PRN (17:22)
[2021-08-24] MEDS: hydrOXYzine PAMOATE 25 MG CAPSULE (FP) PO SCH ×2 (17:22→22:13)
[2021-08-24] MEDS ORDERED: LORazepam 1 MG TABLET PO PRN (17:40)
[2021-08-24] MEDS ORDERED: chlordiazePOXIDE HCL 25 MG CAPSULE PO ONE (18:40)
[2021-08-24] MEDS: ACETAMINOPHEN 325 MG TABLET (FP) PO PRN (21:13)
[2021-08-24] MEDS ORDERED: THIAMINE HCL 100 MG TABLET (FP) PO SCH (22:00)
[2021-08-24] MEDS ORDERED: MELATONIN 5 MG TABLETS PO SCH (22:00)
[2021-08-24] MEDS: IBUPROFEN 400 MG TABLET (FP) PO PRN (22:13)
[2021-08-24] MEDS: chlordiazePOXIDE HCL 25 MG CAPSULE PO SCH (22:15)
[2021-08-25] MEDS: chlordiazePOXIDE HCL 25 MG CAPSULE PO SCH ×2 (05:47→10:08)
[2021-08-25] MEDS: IBUPROFEN 400 MG TABLET (FP) PO PRN ×2 (05:48→11:45)
[2021-08-25] MEDS: hydrOXYzine PAMOATE 25 MG CAPSULE (FP) PO SCH ×4 (06:30→13:39)
[2021-08-25] MEDS: chlordiazePOXIDE HCL 25 MG CAPSULE PO PRN ×2 (08:33→12:34)
[2021-08-25] MEDS: METHOCARBAMOL 500 MG TABLET PO PRN (08:35)
[2021-08-25 09:47] LABS: CREATININE 0.7 mg/dL (0.55-1.3)
[2021-08-25 09:49] LABS: BILIRUBIN,TOTAL 1.2 mg/dL (0.2-1); TOT PROT 7.1 g/dl (6.4-8.2)
[2021-08-25 09:51] LABS: CALCIUM 9.2 mg/dL (8.5-10.1)
[2021-08-25 09:53] LABS: ALBUMIN 3.9 g/dl (3.4-5.0)
[2021-08-25 09:55] LABS: BLOOD UREA NITROGEN 9.4 mg/dL (7-18)
[2021-08-25] MEDS ORDERED: PANTOPRAZOLE 40 MG TABLET PO SCH (10:00)
[2021-08-25] MEDS ORDERED: PRENATAL VITAMINS W/ FOLIC ACID TABLET (FP) PO SCH (10:00)
[2021-08-25 10:09] LABS: HEMATOCRIT 37.4 % (35.4-49); HEMOGLOBIN 12.9 GM/dL (11.7-16.9); MCH 30.1 pg (25.7-33.7); MCHC 34.6 g/dl (32.0-35.9); MEAN CELL VOLUME 87.1 fl (80-96); MEAN PLT VOLUME 8.9 fl (7.5-11.1); PLATELET COUNT 125 10^3/uL (134-434); RBC 4.29 M/mm3 (4.00-5.60); RDW 15.6 % (11.9-15.9); WHITE BLOOD COUNT 4.8 K/mm3 (4.0-10.0)
[2021-08-25 12:55] VITALS: BP 112/88; PULSE 108; TEMP 97.6
[2021-08-25] MEDS: DOCUSATE SODIUM 100 MG CAPSULE (FP) PO SCH ×2 (13:32→13:39)
[2021-08-25] MEDS: ACETAMINOPHEN 325 MG TABLET (FP) PO PRN ×2 (13:32→13:39)
[2021-08-25 14:08] LABS: SARS-CoV-2 NAA Not Detected (Not Detected)
[2021-08-25] MEDS ORDERED: SUVOREXANT 10 MG TABLET PO PRN (22:00)
[2021-08-26] MEDS ORDERED: LORazepam 1 MG TABLET PO SCH (05:00)
[2021-08-26] MEDS ORDERED: chlordiazePOXIDE HCL 25 MG CAPSULE PO SCH ×2 (05:00)
[2021-08-26 06:06] LABS: SARS-CoV-2 NAA Not Detected (Not Detected)
[2021-08-27] MEDS ORDERED: LORazepam 0.5 MG TABLET PO PRN
[2021-08-27] MEDS ORDERED: chlordiazePOXIDE HCL 10 MG CAPSULE PO PRN ×2
[2021-08-27] MEDS ORDERED: LORazepam 0.5 MG TABLET PO SCH (05:00)
[2021-08-27] MEDS ORDERED: chlordiazePOXIDE HCL 10 MG CAPSULE PO SCH ×2 (05:00)
[2021-08-28] MEDS ORDERED: LORazepam 0.5 MG TABLET PO ONE (05:00)
[2021-08-28] MEDS ORDERED: chlordiazePOXIDE HCL 10 MG CAPSULE PO SCH ×2 (05:00)
[2021-08-29] MEDS ORDERED: chlordiazePOXIDE HCL 10 MG CAPSULE PO ONE ×2 (05:00)
== END 2021-08-25 15:06 | disposition left against medical advice (07) | DRG 894 ==
LOC: YASAS 12:15 → Y6N 14:45
PROVIDERS: ADMIT Allergy & Immunology; ATTEND Allergy & Immunology
PROC: HZ2ZZZZ Detoxification Services for Substance Abuse Treatment (ICD-10-PCS; principal; 2021-08-24)
DX: F10.230 Alcohol dependence with withdrawal, uncomplicated (principal); F12.20 Cannabis dependence, uncomplicated; F17.213 Nicotine dependence, cigarettes, with withdrawal; F10.282 Alcohol dependence with alcohol-induced sleep disorder; F10.280 Alcohol dependence with alcohol-induced anxiety disorder; F10.24 Alcohol dependence with alcohol-induced mood disorder; G47.00 Insomnia, unspecified; K21.9 Gastro-esophageal reflux disease without esophagitis; Z96.611 Presence of right artificial shoulder joint
CPT/HCPCS: 36415; 80053; 85027; 86780; C9803; U0003; U0005

== ENCOUNTER 2021-10-08 11:42 | Inpatient (IN) | payer OTHER ==
[2021-10-08] MEDS ORDERED: MAG HYDROX/AL HYDROX/SIMETH 30 ML UNIT-DOSE CUP PO PRN (12:16)
[2021-10-08] MEDS ORDERED: ONDANSETRON *ODT* 4 MG TABLET SL PRN (12:16)
[2021-10-08] MEDS ORDERED: LOPERAMIDE HCL 2 MG CAPSULE PO PRN (12:16)
[2021-10-08] MEDS ORDERED: BENZOCAINE/MENTHOL (CHLORASEPTIC ) LOZENGE MM PRN (12:16)
[2021-10-08] MEDS ORDERED: MAGNESIUM HYDROX 2400MG/30ML ORAL SUSPENSION 30 ML CUP PO PRN (12:16)
[2021-10-08] MEDS ORDERED: DICYCLOMINE HCL 10 MG CAPSULE PO PRN (12:16)
[2021-10-08] MEDS ORDERED: MAGNESIUM CITRATE 300 ML BOTTLE PO PRN (12:16)
[2021-10-08] MEDS ORDERED: BISMUTH SUBSALICYLATE 524 MG/30 ML PO PRN (12:16)
[2021-10-08] MEDS ORDERED: ACETAMINOPHEN 325 MG TABLET (FP) PO PRN ×2 (12:16)
[2021-10-08] MEDS ORDERED: diazePAM 5 MG TABLET PO ONE (12:20)
[2021-10-08 12:34] VITALS: BMI 24.6
[2021-10-08] MEDS: diazePAM 5 MG TABLET PO PRN (14:22)
[2021-10-08] MEDS: PANTOPRAZOLE 40 MG TABLET PO SCH (14:23)
[2021-10-08] MEDS: PRENATAL VITAMINS W/ FOLIC ACID TABLET (FP) PO SCH (14:24)
[2021-10-08] MEDS: hydrOXYzine PAMOATE 25 MG CAPSULE (FP) PO SCH ×3 (14:29→22:11)
[2021-10-08] MEDS: DOCUSATE SODIUM 100 MG CAPSULE (FP) PO SCH ×2 (15:00→22:11)
[2021-10-08] MEDS: diazePAM 5 MG TABLET PO SCH ×2 (17:10→22:11)
[2021-10-08] MEDS: IBUPROFEN 400 MG TABLET (FP) PO PRN (17:11)
[2021-10-08 17:15] LABS: HEMATOCRIT 39.1 % (35.4-49); HEMOGLOBIN 12.9 GM/dL (11.7-16.9); MCH 28.8 pg (25.7-33.7); MEAN CELL VOLUME 87.3 fl (80-96); MEAN PLT VOLUME 8.8 fl (7.5-11.1); PLATELET COUNT 150 10^3/uL (134-434); RBC 4.48 M/mm3 (4.00-5.60); RDW 16.1 % (11.9-15.9); WHITE BLOOD COUNT 7.4 K/mm3 (4.0-10.0)
[2021-10-08 17:49] LABS: CALCIUM 8.5 mg/dL (8.5-10.1)
[2021-10-08 17:51] LABS: ALBUMIN 3.8 g/dl (3.4-5.0); BLOOD UREA NITROGEN 5.6 mg/dL (7-18)
[2021-10-08 17:53] LABS: BILIRUBIN,TOTAL 0.5 mg/dL (0.2-1); CREATININE 0.7 mg/dL (0.55-1.3); TOT PROT 7.4 g/dl (6.4-8.2)
[2021-10-08] MEDS: METHOCARBAMOL 500 MG TABLET PO PRN (18:43)
[2021-10-08] MEDS ORDERED: MELATONIN 5 MG TABLETS PO SCH (22:00)
[2021-10-08] MEDS ORDERED: THIAMINE HCL 100 MG TABLET (FP) PO SCH (22:00)
[2021-10-09] MEDS: diazePAM 5 MG TABLET PO PRN (03:56)
[2021-10-09] MEDS: METHOCARBAMOL 500 MG TABLET PO PRN ×2 (03:57→10:05)
[2021-10-09] MEDS: IBUPROFEN 400 MG TABLET (FP) PO PRN ×2 (03:57→10:04)
[2021-10-09] MEDS: DOCUSATE SODIUM 100 MG CAPSULE (FP) PO SCH ×2 (06:16→14:41)
[2021-10-09] MEDS: hydrOXYzine PAMOATE 25 MG CAPSULE (FP) PO SCH ×4 (06:16→17:46)
[2021-10-09] MEDS: diazePAM 5 MG TABLET PO SCH (06:17)
[2021-10-09] MEDS ORDERED: chlordiazePOXIDE HCL 25 MG CAPSULE PO ONE (09:20)
[2021-10-09] MEDS ORDERED: chlordiazePOXIDE HCL 25 MG CAPSULE PO PRN (09:20)
[2021-10-09] MEDS: PRENATAL VITAMINS W/ FOLIC ACID TABLET (FP) PO SCH (10:04)
[2021-10-09] MEDS: PANTOPRAZOLE 40 MG TABLET PO SCH (10:04)
[2021-10-09] MEDS ORDERED: ARTIFICIAL TEARS (POLYVINYL ALCOHOL) OPTH DROPS OU PRN (11:47)
[2021-10-09] MEDS ORDERED: IBUPROFEN 600 MG TABLET (FP) PO PRN (11:48)
[2021-10-09] MEDS ORDERED: chlordiazePOXIDE HCL 25 MG CAPSULE PO SCH (17:00)
[2021-10-09 20:07] VITALS: BP 128/96; PULSE 102; TEMP 97.3
[2021-10-10] MEDS ORDERED: diazePAM 5 MG TABLET PO SCH (06:00)
[2021-10-10 14:09] LABS: SARS-CoV-2 NAA Not Detected (Not Detected)
[2021-10-11] MEDS ORDERED: chlordiazePOXIDE HCL 25 MG CAPSULE PO SCH (05:00)
[2021-10-11] MEDS ORDERED: diazePAM 5 MG TABLET PO SCH (06:00)
[2021-10-12] MEDS ORDERED: chlordiazePOXIDE HCL 10 MG CAPSULE PO PRN
[2021-10-12] MEDS ORDERED: chlordiazePOXIDE HCL 10 MG CAPSULE PO SCH (05:00)
[2021-10-12] MEDS ORDERED: diazePAM 5 MG TABLET PO ONE (06:00)
[2021-10-13] MEDS ORDERED: chlordiazePOXIDE HCL 10 MG CAPSULE PO SCH (05:00)
[2021-10-14] MEDS ORDERED: chlordiazePOXIDE HCL 10 MG CAPSULE PO ONE (05:00)
== END 2021-10-09 18:40 | disposition left against medical advice (07) | DRG 894 ==
LOC: YASAS 11:42 → Y3N 13:10
PROVIDERS: ADMIT Allergy & Immunology; ATTEND Allergy & Immunology
PROC: HZ2ZZZZ Detoxification Services for Substance Abuse Treatment (ICD-10-PCS; principal; 2021-10-08)
DX: F10.230 Alcohol dependence with withdrawal, uncomplicated (principal); F12.20 Cannabis dependence, uncomplicated; F17.210 Nicotine dependence, cigarettes, uncomplicated; F19.24 Other psychoactive substance dependence with psychoactive substance-induced mood disorder; F32.A Depression, unspecified; H04.321 Acute dacryocystitis of right lacrimal passage; G47.00 Insomnia, unspecified; K21.9 Gastro-esophageal reflux disease without esophagitis
CPT/HCPCS: 36415; 80053; 85027; 86780; 87811; C9803-CS; U0003; U0005

== ENCOUNTER 2021-11-09 11:56 | Inpatient (IN) | payer OTHER ==
[2021-11-09] MEDS ORDERED: P-EPHED 60MG/TRIPROLIDI 2.5MG TABLET PO PRN (13:41)
[2021-11-09] MEDS ORDERED: MAG HYDROX/AL HYDROX/SIMETH 30 ML UNIT-DOSE CUP PO PRN (13:41)
[2021-11-09] MEDS ORDERED: LOPERAMIDE HCL 2 MG CAPSULE PO PRN (13:41)
[2021-11-09] MEDS ORDERED: MAGNESIUM CITRATE 300 ML BOTTLE PO PRN (13:41)
[2021-11-09] MEDS ORDERED: BENZOCAINE/MENTHOL (CHLORASEPTIC ) LOZENGE MM PRN (13:41)
[2021-11-09] MEDS ORDERED: ONDANSETRON *ODT* 4 MG TABLET SL PRN (13:41)
[2021-11-09] MEDS ORDERED: ACETAMINOPHEN 325 MG TABLET (FP) PO PRN ×2 (13:41)
[2021-11-09] MEDS ORDERED: BISMUTH SUBSALICYLATE 524 MG/30 ML PO PRN (13:41)
[2021-11-09] MEDS ORDERED: DICYCLOMINE HCL 10 MG CAPSULE PO PRN (13:41)
[2021-11-09] MEDS ORDERED: MAGNESIUM HYDROX 2400MG/30ML ORAL SUSPENSION 30 ML CUP PO PRN (13:41)
[2021-11-09] MEDS ORDERED: chlordiazePOXIDE HCL 25 MG CAPSULE PO ONE (13:44)
[2021-11-09 14:00] VITALS: BMI 26.4
[2021-11-09] MEDS ORDERED: chlordiazePOXIDE HCL 25 MG CAPSULE ONE (14:14)
[2021-11-09] MEDS: IBUPROFEN 400 MG TABLET (FP) PO PRN (14:49)
[2021-11-09] MEDS: METHOCARBAMOL 500 MG TABLET PO PRN ×2 (14:50→22:29)
[2021-11-09] MEDS: chlordiazePOXIDE HCL 25 MG CAPSULE PO SCH ×2 (16:48→22:29)
[2021-11-09] MEDS: hydrOXYzine PAMOATE 25 MG CAPSULE (FP) PO PRN ×3 (16:48→22:29)
[2021-11-09] MEDS: THIAMINE HCL 100 MG TABLET (FP) PO SCH (22:29)
[2021-11-09] MEDS: MELATONIN 5 MG TABLETS PO PRN (22:30)
[2021-11-10] MEDS: chlordiazePOXIDE HCL 25 MG CAPSULE PO SCH ×4 (05:20→22:05)
[2021-11-10] MEDS ORDERED: PRENATAL VITAMINS W/ FOLIC ACID TABLET (FP) PO SCH (10:00)
[2021-11-10] MEDS ORDERED: PANTOPRAZOLE 40 MG TABLET PO SCH (11:30)
[2021-11-10] MEDS: ARTIFICIAL TEARS (POLYVINYL ALCOHOL) OPTH DROPS OU SCH ×2 (15:24→22:09)
[2021-11-10] MEDS: hydrOXYzine PAMOATE 25 MG CAPSULE (FP) PO PRN ×2 (18:25→22:06)
[2021-11-10] MEDS: chlordiazePOXIDE HCL 25 MG CAPSULE PO PRN (20:37)
[2021-11-10] MEDS: THIAMINE HCL 100 MG TABLET (FP) PO SCH (22:06)
[2021-11-10] MEDS: MELATONIN 5 MG TABLETS PO PRN (22:06)
[2021-11-10] MEDS: METHOCARBAMOL 500 MG TABLET PO PRN (22:06)
[2021-11-11] MEDS: chlordiazePOXIDE HCL 25 MG CAPSULE PO PRN (00:37)
[2021-11-11] MEDS: hydrOXYzine PAMOATE 25 MG CAPSULE (FP) PO PRN ×2 (01:02→04:17)
[2021-11-11] MEDS ORDERED: MELATONIN 5 MG TABLETS PO ONE (01:28)
[2021-11-11] MEDS ORDERED: chlordiazePOXIDE HCL 25 MG CAPSULE PO SCH (05:00)
[2021-11-11] MEDS: IBUPROFEN 400 MG TABLET (FP) PO PRN ×2 (05:20→05:41)
[2021-11-11] MEDS: ARTIFICIAL TEARS (POLYVINYL ALCOHOL) OPTH DROPS OU SCH (05:40)
[2021-11-11 05:41] VITALS: PULSE 100; TEMP 97.7
[2021-11-11 07:19] VITALS: BP 113/88
[2021-11-11] MEDS ORDERED: SUVOREXANT 10 MG TABLET PO PRN (22:00)
[2021-11-12] MEDS ORDERED: chlordiazePOXIDE HCL 10 MG CAPSULE PO PRN
[2021-11-12] MEDS ORDERED: chlordiazePOXIDE HCL 10 MG CAPSULE PO SCH (05:00)
[2021-11-13] MEDS ORDERED: chlordiazePOXIDE HCL 10 MG CAPSULE PO SCH (05:00)
[2021-11-14] MEDS ORDERED: chlordiazePOXIDE HCL 10 MG CAPSULE PO ONE (05:00)
== END 2021-11-11 08:47 | disposition left against medical advice (07) | DRG 894 ==
LOC: YASAS 11:56 → Y6N 13:51
PROVIDERS: ADMIT Allergy & Immunology; ATTEND Surgery
PROC: HZ2ZZZZ Detoxification Services for Substance Abuse Treatment (ICD-10-PCS; principal; 2021-11-09)
DX: F10.230 Alcohol dependence with withdrawal, uncomplicated (principal); F12.20 Cannabis dependence, uncomplicated; F17.210 Nicotine dependence, cigarettes, uncomplicated; F10.282 Alcohol dependence with alcohol-induced sleep disorder; F10.24 Alcohol dependence with alcohol-induced mood disorder; G47.00 Insomnia, unspecified; K21.9 Gastro-esophageal reflux disease without esophagitis
CPT/HCPCS: C9803-CS; U0003; U0005

== ENCOUNTER 2022-01-29 14:11 | Inpatient (IN) | payer OTHER ==
[2022-01-29 15:03] VITALS: BMI 25.8
[2022-01-29] MEDS ORDERED: MAGNESIUM HYDROX 2400MG/30ML ORAL SUSPENSION 30 ML CUP PO PRN (15:05)
[2022-01-29] MEDS ORDERED: LOPERAMIDE HCL 2 MG CAPSULE PO PRN (15:05)
[2022-01-29] MEDS ORDERED: BISMUTH SUBSALICYLATE 262 MG/15 ML BTL PO PRN (15:05)
[2022-01-29] MEDS ORDERED: IBUPROFEN 400 MG TABLET (FP) PO PRN (15:05)
[2022-01-29] MEDS ORDERED: ACETAMINOPHEN 325 MG TABLET (FP) PO PRN ×2 (15:05)
[2022-01-29] MEDS ORDERED: ONDANSETRON *ODT* 4 MG TABLET SL PRN (15:05)
[2022-01-29] MEDS ORDERED: MAG HYDROX/AL HYDROX/SIMETH 30 ML UNIT-DOSE CUP PO PRN (15:05)
[2022-01-29] MEDS ORDERED: chlordiazePOXIDE HCL 25 MG CAPSULE PO ONE (15:05)
[2022-01-29] MEDS ORDERED: DICYCLOMINE HCL 10 MG CAPSULE PO PRN (15:05)
[2022-01-29] MEDS ORDERED: NICOTINE 10 MG CARTRIDGE (INHALER) IH PRN (15:05)
[2022-01-29] MEDS ORDERED: MAGNESIUM CITRATE 300 ML BOTTLE PO PRN (15:05)
[2022-01-29] MEDS ORDERED: BENZOCAINE/MENTHOL (CHLORASEPTIC ) LOZENGE MM PRN (15:05)
[2022-01-29] MEDS: NICOTINE 14 MG/24 HOURS TOPICAL PATCH TD SCH (15:52)
[2022-01-29] MEDS: PRENATAL VITAMINS W/ FOLIC ACID TABLET (FP) PO SCH (15:53)
[2022-01-29] MEDS: chlordiazePOXIDE HCL 25 MG CAPSULE PO SCH ×2 (17:01→22:26)
[2022-01-29] MEDS: hydrOXYzine PAMOATE 25 MG CAPSULE (FP) PO SCH ×2 (17:02→22:26)
[2022-01-29] MEDS: METHOCARBAMOL 500 MG TABLET PO PRN (17:02)
[2022-01-29] MEDS: chlordiazePOXIDE HCL 25 MG CAPSULE PO PRN (18:53)
[2022-01-29] MEDS: THIAMINE HCL 100 MG TABLET (FP) PO SCH (22:26)
[2022-01-29] MEDS: MELATONIN 5 MG TABLETS PO SCH (22:28)
[2022-01-30] MEDS: chlordiazePOXIDE HCL 25 MG CAPSULE PO SCH ×4 (05:34→22:13)
[2022-01-30] MEDS: hydrOXYzine PAMOATE 25 MG CAPSULE (FP) PO SCH ×5 (05:34→22:15)
[2022-01-30] MEDS: IBUPROFEN 600 MG TABLET (FP) PO PRN ×2 (08:44→16:28)
[2022-01-30] MEDS: cloNIDine HCL 0.1 MG TABLET PO PRN (09:14)
[2022-01-30] MEDS ORDERED: PANTOPRAZOLE 40 MG TABLET PO SCH (10:00)
[2022-01-30] MEDS: NICOTINE 14 MG/24 HOURS TOPICAL PATCH TD SCH (10:12)
[2022-01-30] MEDS: METHOCARBAMOL 500 MG TABLET PO PRN ×2 (10:14→17:37)
[2022-01-30] MEDS: PRENATAL VITAMINS W/ FOLIC ACID TABLET (FP) PO SCH (10:15)
[2022-01-30 11:30] LABS: HEMATOCRIT 42.3 % (35.4-49); HEMOGLOBIN 13.8 GM/dL (11.7-16.9); MCH 27.8 pg (25.7-33.7); MCHC 32.7 g/dl (32.0-35.9); MEAN CELL VOLUME 85.1 fl (80-96); MEAN PLT VOLUME 9.1 fl (7.5-11.1); PLATELET COUNT 126 10^3/uL (134-434); RBC 4.97 M/mm3 (4.00-5.60); RDW 19.2 % (11.9-15.9); WHITE BLOOD COUNT 5.4 K/mm3 (4.0-10.0)
[2022-01-30 11:31] LABS: CALCIUM 8.8 mg/dL (8.5-10.1)
[2022-01-30 11:34] LABS: BLOOD UREA NITROGEN 10.1 mg/dL (7-18); CREATININE 0.7 mg/dL (0.55-1.3)
[2022-01-30 11:36] LABS: BILIRUBIN,TOTAL 1.1 mg/dL (0.2-1); TOT PROT 7.7 g/dl (6.4-8.2)
[2022-01-30] MEDS: ARTIFICIAL TEARS (POLYVINYL ALCOHOL) OPTH DROPS OU PRN ×2 (12:32→17:25)
[2022-01-30] MEDS: chlordiazePOXIDE HCL 25 MG CAPSULE PO PRN (13:20)
[2022-01-30] MEDS ORDERED: ARTIFICIAL TEARS (POLYVINYL ALCOHOL) OPTH DROPS OU PRN (20:18)
[2022-01-30] MEDS: THIAMINE HCL 100 MG TABLET (FP) PO SCH (22:13)
[2022-01-30] MEDS: MELATONIN 5 MG TABLETS PO SCH ×2 (22:14→23:45)
[2022-01-30] MEDS ORDERED: MELATONIN 5 MG TABLETS PO SCH ×2 (22:21→23:15)
[2022-01-31] MEDS: cloNIDine HCL 0.1 MG TABLET PO PRN (00:45)
[2022-01-31] MEDS: chlordiazePOXIDE HCL 25 MG CAPSULE PO PRN (00:45)
[2022-01-31] MEDS ORDERED: hydrOXYzine PAMOATE 25 MG CAPSULE (FP) PO ONE (02:11)
[2022-01-31] MEDS: METHOCARBAMOL 500 MG TABLET PO PRN (02:37)
[2022-01-31] MEDS ORDERED: chlordiazePOXIDE HCL 25 MG CAPSULE PO SCH (05:00)
[2022-01-31] MEDS: hydrOXYzine PAMOATE 25 MG CAPSULE (FP) PO SCH (05:55)
[2022-01-31] MEDS: IBUPROFEN 600 MG TABLET (FP) PO PRN (08:45)
[2022-01-31 09:56] VITALS: BP 140/85; PULSE 103; RESP 16; TEMP 96.8
[2022-02-01] MEDS ORDERED: chlordiazePOXIDE HCL 10 MG CAPSULE PO PRN
[2022-02-01] MEDS ORDERED: chlordiazePOXIDE HCL 10 MG CAPSULE PO SCH (05:00)
[2022-02-02] MEDS ORDERED: chlordiazePOXIDE HCL 10 MG CAPSULE PO SCH (05:00)
[2022-02-03] MEDS ORDERED: chlordiazePOXIDE HCL 10 MG CAPSULE PO ONE (05:00)
== END 2022-01-31 10:00 | disposition left against medical advice (07) | DRG 894 ==
LOC: YASAS 14:11 → Y6N 15:14
PROVIDERS: ADMIT Allergy & Immunology; ATTEND Surgery
PROC: HZ2ZZZZ Detoxification Services for Substance Abuse Treatment (ICD-10-PCS; principal; 2022-01-29)
DX: F10.230 Alcohol dependence with withdrawal, uncomplicated (principal); F12.20 Cannabis dependence, uncomplicated; F10.282 Alcohol dependence with alcohol-induced sleep disorder; F10.24 Alcohol dependence with alcohol-induced mood disorder; F32.A Depression, unspecified; G47.00 Insomnia, unspecified; K21.9 Gastro-esophageal reflux disease without esophagitis; Z87.891 Personal history of nicotine dependence; Z99.89 Dependence on other enabling machines and devices
CPT/HCPCS: 36415; 80053; 85027; 86780; C9803-CS; J0735; Q0162; U0003; U0005